=== PATIENT | male | born 1925 | race Caucasian/White ===

== ENCOUNTER 2016-08-18 08:36 | Observation (INO) | payer MEDICARE ==
[2016-08-18] MEDS ORDERED: Aspirin Low Dose CHEW TAB* 81 MG PO ONE (08:58)
[2016-08-18 09:14] LABS: Hematocrit 43 % (42-52); Hemoglobin 14.4 g/dl (14.0-18.0); Mean Corpuscular HGB Conc 34 g/dl (31-36); Mean Corpuscular Hemoglobin 32 pg (27-31); Mean Corpuscular Volume 95 fL (80-94); Mean Platelet Volume 10 um3 (7.4-10.4); Red Blood Count 4.53 10^6/ul (4.0-5.4); Red Cell Distribution Width 13 % (10.5-15); White Blood Count 6.4 10^3/ul (3.5-10.8)
[2016-08-18 09:30] LABS: Albumin 3.9 g/dL (3.2-5.2); BUN/Creatinine Ratio 19.4 (8-20); C Reactive Protein 1.42 mg/L (< 5.00); Calcium 9.4 mg/dL (8.6-10.3); EGFR African American 87.7 (>60); EGFR Non-African American 68.2 (>60); Globulin 2.8 g/dL (2-4); Potassium 4.5 mmol/L (3.5-5.0); Total Bilirubin 0.6 mg/dL (0.2-1.0); Total Protein 6.7 g/dL (6.4-8.9)
--- NOTE | 2016-08-18 09:32 | RAD ---
HISTORY: Shortness of breath COMPARISONS: July 06, 2012 VIEWS:1: Single frontal portable view of the chest at 9:02 AM FINDINGS: LINES AND TUBES: None. CARDIOMEDIASTINAL SILHOUETTE: The cardiomediastinal silhouette is normal for portable technique. PLEURA: The costophrenic angles are sharp. No pleural abnormalities are noted. LUNG PARENCHYMA: The lungs are clear. ABDOMEN: The upper abdomen is clear. There is no subphrenic gas. BONES AND SOFT TISSUES: No bone or soft tissue abnormalities are noted. IMPRESSION: NO ACTIVE CARDIOPULMONARY DISEASE.
[2016-08-18 09:37] LABS: Troponin I 0.04 ng/mL (<0.04)
[2016-08-18] MEDS ORDERED: Furosemide IV* 10 MG/ML 2 ML VIAL (20 MG) IV SLOW PU ONE (10:16)
[2016-08-18] MEDS ORDERED: Insulin REGULAR(*) 1 UNITS UNIT IV PUSH ONE (10:16)
[2016-08-18 11:12] LABS: Urine Bilirubin Negative (Negative); Urine Glucose 3+(>=500 mg/dL) (Negative); Urine Nitrite Negative (Negative)
--- NOTE | 2016-08-18 11:51 | RAD ---
Indication: Leg edema. Duplex Doppler sonography of the deep venous system of both lower extremities was performed. Bilaterally the common femoral veins, proximal greater saphenous veins, proximal deep femoral veins, femoral veins, popliteal veins, posterior tibial veins and peroneal veins appear patent and compressible. The medial aspect of the popliteal fossa is fluid collection with a 13 x 7 x 8 mm mass within it. This may represent a popliteal with a synovial osteochondroma. IMPRESSION: NO EVIDENCE OF DEEP VENOUS THROMBOSIS OF EITHER LOWER EXTREMITY IS PRESENT. IN THE MEDIAL POPLITEAL FOSSA THERE IS LIKELY A POPLITEAL FOSSA CYST IS 13 X 7 X 8 MM SOFT TISSUE MASS WHICH MAY REPRESENT AN OSTEOCHONDROMA OR LOOSE BODY.
[2016-08-18] MEDS ORDERED: Perflutren Lipid Microsphere* 3 ML VIAL ONE (13:48)
[2016-08-18] MEDS: Heparin VIAL(*) 5000 UNITS/ML VIAL (FIVE THOUSAND) SUBCUT SCH ×2 (15:15→21:00)
--- NOTE | 2016-08-18 17:53 | ED ---
Prashanth Lemus Claudia, scribed for Hector Choi MD on 08/18/16 at 0857 . Shortness of Breath - HPI Summary HPI Summary: 89 year old male presents to the ED with chief complaints of lower extremity bilateral edema. Pt states that he has been having gradual onset of intermittent Sx over the past few months but it worsened over the last day significantly. Pt denies any Rx of water pills. Pt admits to associated Sx of SOB but denies any CP, NVD. He denies any aggravating or alleviating factors at this time. - History of Current Complaint Chief Complaint: EDShortnessOfBreath Time Seen by Provider: 08/18/16 08:52 Hx Obtained From: Patient Onset/Duration: Gradual Onset, Still Present Associated Signs & Symptoms: Cough (Nonproductive), Edema - lower extremity bilaterally - Allergy/Home Medications Allergies/Adverse Reactions: Allergies Allergy/AdvReac Type Severity Reaction Status Date / Time No Known Allergies Allergy Verified 08/18/16 09:13 PMH/Surg Hx/FS Hx/Imm Hx Previously Healthy: Yes Endocrine/Hematology History: Reports: Hx Diabetes - type 2 Denies: Hx Thyroid Disease Cardiovascular History: Denies: Hx Hypertension Respiratory History: Denies: Hx Asthma, Hx Chronic Obstructive Pulmonary Disease (COPD) GI History: Denies: Hx Ulcer - Surgical History Surgery Procedure, Year, and Place: 1954 [facility] Infectious Disease History: No Infectious Disease History: Denies: Hx Hepatitis, Hx Human Immunodeficiency Virus (HIV), History Other Infectious Disease, Traveled Outside the [place] in Last 30 Days - Family History Known Family History: Positive: Cardiac Disease, Hypertension, Diabetes - Social History Occupation: Retired Lives: With Family Alcohol Use: None Substance Use Type: Reports: None Smoking Status (MU): Former Smoker Review of Systems Constitutional: Negative Eyes: Negative ENT: Negative Negative: Chest Pain Positive: Shortness Of Breath Gastrointestinal: Negative Negative: Vomiting, Diarrhea, Nausea Genitourinary: Negative Positive: Edema - to feet bilaterally Skin: Negative Neurological: Negative Psychological: Normal All Other Systems Reviewed And Are Negative: Yes Physical Exam - Summary Physical Exam Summary: VITAL SIGNS: Reviewed. GENERAL: Patient is a well-developed and nourished (MALE OR FEMALE) who is lying comfortable in the stretcher. Patient is not in any acute respiratory distress. HEAD AND FACE: No signs of trauma. No ecchymosis, hematomas or skull depressions. No sinus tenderness. EYES: PERRLA, EOMI x 2, No injected conjunctiva, no nystagmus. EARS: Hearing grossly intact. Ear canals and tympanic membranes are within normal limits. MOUTH: Oropharynx within normal limits. NECK: Supple, trachea is midline, no adenopathy, no JVD, no carotid bruit, no c- spine tenderness, neck with full ROM. CHEST: Symmetric, no tenderness at palpation LUNGS: Clear to auscultation bilaterally. No wheezing or crackles. CVS: Regular rate and rhythm, S1 and S2 present, no murmurs or gallops appreciated. ABDOMEN: Soft, non-tender. No signs of distention. No rebound no guarding, and no masses palpated. Bowel sounds are normal. EXTREMITIES: FROM in all major joints, no cyanosis or clubbing. LOWER EXTREMITY EDEMA BILATERALLY, LEFT WORST THAN THE RIGHT. NEURO: Alert and oriented x 3. No acute neurological deficits. Speech is normal and follows commands. SKIN: Dry and warm Triage Information Reviewed: Yes Vital Signs On Initial Exam: Initial Vitals Temp Pulse Resp BP Pulse Ox 97.8 F 63 20 115/66 97 08/18/16 08:38 08/18/16 08:38 08/18/16 08:38 08/18/16 08:38 08/18/16 08:38 Vital Signs Reviewed: Yes - Roxanna Coma Scale Coma Scale Total: 15 Diagnostics - Vital Signs Vital Signs Temp Pulse Resp BP Pulse Ox 08/18/16 08:51 20 08/18/16 08:50 15 08/18/16 08:38 97.8 F 63 20 115/66 97 - Laboratory Lab Results: Lab Results 08/18/16 08/18/16 08/18/16 Range/Units 09:00 09:00 09:00 WBC 6.4 (3.5-10.8) 10^3/ul RBC 4.53 (4.0-5.4) 10^6/ul Hgb 14.4 (14.0-18.0) g/dl Hct 43 (42-52) % MCV 95 H (80-94) fL MCH 32 H (27-31) pg MCHC 34 (31-36) g/dl RDW 13 (10.5-15) % Plt Count 137 L (150-450) 10^3/ul MPV 10 (7.4-10.4) um3 Neut % (Auto) 61.6 (38-83) % Lymph % (Auto) 21.9 L (25-47) % [place] % (Auto) 9.0 (1-9) % Eos % (Auto) 6.5 H (0-6) % Baso % (Auto) 1.0 (0-2) % Absolute Neuts (auto) 3.9 (1.5-7.7) 10^3/ul Absolute Lymphs (auto) 1.4 (1.0-4.8) 10^3/ul Absolute Monos (auto) 0.6 (0-0.8) 10^3/ul Absolute Eos (auto) 0.4 (0-0.6) 10^3/ul Absolute Basos (auto) 0.1 (0-0.2) 10^3/ul Absolute Nucleated RBC 0 10^3/ul Nucleated RBC % 0.1 Sodium 137 (133-145) mmol/L Potassium 4.5 (3.5-5.0) mmol/L Chloride 105 (101-111) mmol/L Carbon Dioxide 27 (22-32) mmol/L Anion Gap 5 (2-11) mmol/L BUN 20 (6-24) mg/dL Creatinine 1.03 (0.67-1.17) mg/dL Est GFR ( Amer) 87.7 (>60) Est GFR (Non-Af Amer) 68.2 (>60) BUN/Creatinine Ratio 19.4 (8-20) Glucose 295 H (70-100) mg/dL Hemoglobin A1c (Less than 6.0) % Lactic Acid 1.5 (0.5-2.0) mmol/L Calcium 9.4 (8.6-10.3) mg/dL Total Bilirubin 0.60 (0.2-1.0) mg/dL AST 17 (13-39) U/L ALT 15 (7-52) U/L Alkaline Phosphatase 71 (34-104) U/L CK-MB (CK-2) 8.9 H (0.6-6.3) ng/mL Troponin I 0.04 H* (<0.04) ng/mL C-Reactive Protein 1.42 (< 5.00) mg/L B-Natriuretic Peptide ( - 100) pg/mL Total Protein 6.7 (6.4-8.9) g/dL Albumin 3.9 (3.2-5.2) g/dL Globulin 2.8 (2-4) g/dL Albumin/Globulin Ratio 1.4 (1-3) Urine Color Urine Appearance Urine pH (5-9) Ur Specific Sylvester (1.010-1.030) Urine Protein (Negative) Urine Ketones (Negative) Urine Blood (Negative) Urine Nitrate (Negative) Urine Bilirubin (Negative) Urine Urobilinogen (Negative) Ur Leukocyte Esterase (Negative) Urine Glucose (Negative) Urine Ascorbic Acid (Negative) 08/18/16 08/18/16 08/18/16 Range/Units 09:00 09:00 10:49 WBC (3.5-10.8) 10^3/ul RBC (4.0-5.4) 10^6/ul Hgb (14.0-18.0) g/dl Hct (42-52) % MCV (80-94) fL MCH (27-31) pg MCHC (31-36) g/dl RDW (10.5-15) % Plt Count (150-450) 10^3/ul MPV (7.4-10.4) um3 Neut % (Auto) (38-83) % Lymph % (Auto) (25-47) % [place] % (Auto) (1-9) % Eos % (Auto) (0-6) % Baso % (Auto) (0-2) % Absolute Neuts (auto) (1.5-7.7) 10^3/ul Absolute Lymphs (auto) (1.0-4.8) 10^3/ul Absolute Monos (auto) (0-0.8) 10^3/ul Absolute Eos (auto) (0-0.6) 10^3/ul Absolute Basos (auto) (0-0.2) 10^3/ul Absolute Nucleated RBC 10^3/ul Nucleated RBC % Sodium (133-145) mmol/L Potassium (3.5-5.0) mmol/L Chloride (101-111) mmol/L Carbon Dioxide (22-32) mmol/L Anion Gap (2-11) mmol/L BUN (6-24) mg/dL Creatinine (0.67-1.17) mg/dL Est GFR ( Amer) (>60) Est GFR (Non-Af Amer) (>60) BUN/Creatinine Ratio (8-20) Glucose (70-100) mg/dL Hemoglobin A1c 9.4 H (Less than 6.0) % Lactic Acid (0.5-2.0) mmol/L Calcium (8.6-10.3) mg/dL Total Bilirubin (0.2-1.0) mg/dL AST (13-39) U/L ALT (7-52) U/L Alkaline Phosphatase (34-104) U/L CK-MB (CK-2) (0.6-6.3) ng/mL Troponin I (<0.04) ng/mL C-Reactive Protein (< 5.00) mg/L B-Natriuretic Peptide 97 ( - 100) pg/mL Total Protein (6.4-8.9) g/dL Albumin (3.2-5.2) g/dL Globulin (2-4) g/dL Albumin/Globulin Ratio (1-3) Urine Color Yellow Urine Appearance Clear Urine pH 6.0 (5-9) Ur Specific Sylvester 1.013 (1.010-1.030) Urine Protein Negative (Negative) Urine Ketones Negative (Negative) Urine Blood Negative (Negative) Urine Nitrate Negative (Negative) Urine Bilirubin Negative (Negative) Urine Urobilinogen Negative (Negative) Ur Leukocyte Esterase Negative (Negative) Urine Glucose 3+(>=500 mg/dl) H (Negative) Urine Ascorbic Acid * H (Negative) Result Diagrams: 08/18/16 09:00 08/18/16 09:00 Lab Statement: Any lab studies that have been ordered have been reviewed, and results considered in the medical decision making process. - Radiology CXR Xray Interpretation: No Acute Changes - NO ACTIVE CARDIOPULMONARY DISEASE Radiology Interpretation Completed By: Radiologist - EKG 8:56 Cardiac Rate: NL EKG Rhythm: Sinus Rhythm - 60 BEATS/MIN ST Segment: Normal - NO ST ELEVATION EKG Interpretation: SIMILAR TO EKG ON 07/06/12 - Additional Comments Diagnostic Additional Comments: venous doppler: NO EVIDENCE OF DEEP VENOUS THROMBOSIS OF EITHER LOWER EXTREMITY IS PRESENT. IN THE MEDIAL POPLITEAL FOSSA THERE IS LIKELY A POPLITEAL FOSSA CYST IS 13 X 7 X 8 MM SOFT TISSUE MASS WHICH MAY REPRESENT AN OSTEOCHONDROMA OR LOOSE BODY. Course/Dx - Course Assessment/Plan: 89 year old male presents to the ED with chief complaints of lower extremity bilateral edema. Pt states that he has been having gradual onset of intermittent Sx over the past few months but it worsened over the last day significantly. Pt denies any Rx of water pills. Pt admits to associated Sx of SOB but denies any CP, NVD. He denies any aggravating or alleviating factors at this time. Lab Work within nml limits except glucose of 295, troponin of 0.04. Urine analysis neg for UTI. LE shows no DVT. CXR no acute cardiopulmonary disease. In the ED course the pt was given Lasix for the LE edema and he was given aspirin for the increased troponin and insulin for the hyperglycemia. At this point I discussed the pt with Dr. Cage whom accepts for admission. The pt is Hemodynamically stable Alert and Oriented x3 - Diagnoses Differential Diagnosis/HQI/PQRI: Positive: CHF, TN, Pulmonary Edema Provider Diagnoses: Bilateral lower extremity edema, Increased troponin r/o ACS - Physician Notifications Discussed Care of Patient With: Dr. Cage has been made aware of the pt. - Dr. Cage will admit the pt for Observation. 11:33 Time Discussed With Above Provider: 11:03 Instructed by Provider To: Admit As Observation Discharge - Discharge Plan Condition: Stable Disposition: ADMITTED TO [facility] The documentation as recorded by the Prashanth coates Claudia accurately reflects the service I personally performed and the decisions made by , Hector Choi MD.
[2016-08-18] MEDS ORDERED: Insulin LISPRO* 1 UNITS UNIT SUBCUT SCH (18:00)
[2016-08-18] MEDS ORDERED: Dextrose 50% Syringe 50 ML* 25 GM/50 ML SYRINGE IV PUSH PRN (18:00)
[2016-08-18] MEDS: Insulin LISPRO* 1 UNITS UNIT SUBCUT SCH (20:58)
--- NOTE | 2016-08-18 23:33 | HP ---
CC: Bimal Wilhelm MD * HISTORY AND PHYSICAL: DATE OF ADMISSION: CHIEF COMPLAINT: Swelling in his legs. HISTORY OF PRESENT ILLNESS: The patient is an 89-year-old gentleman who presents to [facility] with a chief complaint that he feels there is increased water in his legs. He has had this problem before, but over the last couple of days, it has became more significant making it difficult for him to walk. He also notes increased shortness of breath. It is worse with exertion and sometimes worse when he lies down flat. He also admits that he does not watch the salt in his diet and eats what he wants. He denies any chest pain. He has put on a lot of weight lately. In the ED, the patient was evaluated, given some diuretics and improved significantly. His shortness of breath is better and his legs were less swollen. PAST MEDICAL HISTORY: Significant only for diabetes. PAST SURGICAL HISTORY: Significant for appendectomy. CURRENT MEDICATIONS: 1. Glucosamine 2000 mg daily. 2. Lutein 1 capsule daily. 3. Lantus insulin 34 units subcu daily. 4. Cod liver oil 2 caps daily. 5. Vitamin C 4000 mg daily. FAMILY HISTORY: Review and noncontributory. SOCIAL HISTORY: No tobacco. No alcohol. No recreational drug use. 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 He is with 4 children. His , Leana Neves, is his healthcare proxy. REVIEW OF SYSTEMS: A 14-point review of systems was completed with the patient. All pertinent positives and negatives are in the history of present illness, otherwise it is negative. PHYSICAL EXAMINATION GENERAL: A very pleasant gentleman lying in bed, in no acute distress. VITAL SIGNS: Temperature 97.5 degrees, heart rate 60 beats per minute, respiratory rate 16 breaths per minute, pulse ox 100% on room air, blood pressure 124/64. HEENT: Normocephalic and atraumatic. Pupils are equal, round, and reactive to light. Moist mucous membranes. NECK: Supple. No JVD, bruits, palpable thyroid or lymphadenopathy. CHEST: Clear to auscultation and percussion. CARDIOVASCULAR: S1, S2 appreciated. Regular rate and rhythm. ABDOMEN: Positive bowel sounds in all 4 quadrants. Soft, nontender, and nondistended. EXTREMITIES: He has got no cyanosis or clubbing. He has got +1 pitting edema bilaterally. NEUROLOGIC: Alert and oriented x3. He moves all extremities. SKIN: No rashes or abnormalities. LABORATORY DATA: WBC 6.4, hemoglobin 14.4, hematocrit 43, platelets 137. Sodium 137, potassium 4.5, chloride 105, CO2 27, BUN 20, creatinine 1.03, glucose is 295. Hemoglobin A1c is 9.4. Troponin 0.04 x3. BNP is only 97. UA just shows +3 glucose. Chest x-ray was interpreted by Radiology as no active cardiopulmonary disease. Venous Duplex showed no evidence for DVT of either lower extremity present. In the medial popliteal fossa, there is likely a popliteal fossa cyst, 13 x 7.8 x 8 mm soft tissue mass, which may represent an osteochondroma or loose body. EKG shows sinus rhythm at a rate of 60 beats per minute, left axis deviation, no acute ST-T wave changes. ASSESSMENT AND PLAN: 1. Peripheral edema with accompanying shortness of breath. His BNP is only 97. We have ordered a transthoracic echocardiogram. I will await for these results. He seems to already benefit from a diuretic, but I will certainly instruct him to watch the salt in his diet, keep his legs elevated and possibly try compressive stockings. I will hold off on diuretics and possible early discharge if echocardiogram is unremarkable. 2. Poorly controlled diabetes. Add fingersticks with sliding scale insulin. We will likely recommend the patient watch his diet more carefully which his says he does not and increase his Lantus insulin at home. 3. FEN. Consistent carb diet. 4. DVT prophylaxis. Heparin subcu. 5. The patient is a full code. TIME SPENT: Over 75 minutes were spent on this H and P, more than 40 minutes of which were spent in direct [id number] contact with the patient in evaluation, physical exam, counseling, and coordination of care. [id number]/[facility] #: [id number] LASHA
[2016-08-19] MEDS: Heparin VIAL(*) 5000 UNITS/ML VIAL (FIVE THOUSAND) SUBCUT SCH ×2 (05:55→13:17)
[2016-08-19] MEDS: Insulin LISPRO* 1 UNITS UNIT SUBCUT SCH ×2 (08:48→13:16)
[2016-08-19] MEDS ORDERED: Insulin GLARGINE(*) 1 UNITS UNIT SUBCUT SCH (09:00)
[2016-08-19] MEDS ORDERED: Ascorbic Acid TAB* 500 MG PO SCH (09:00)
[2016-08-19] MEDS ORDERED: LUTEIN PO SCH (09:00)
[2016-08-19 16:10] VITALS: BP 125/59
--- NOTE | 2016-08-19 16:35 | ECHO ---
Patient: LACEY TOVAR Rec#: [id number] : 1925 Date: 08/18/2016 Age: 89y Height: 187.96 cm / 74.0 in Weight: 90.72 kg / 199.9 lbs Sex: M BSA: 2.17 Room#: 444 Admit Date#: 08/18/2016 Type: Inpatient Referring: Alphonso Cage MD Reading: Fercho Poon MD Police Sergeant: Gisell Barlow,GUERDACS,RDMS CC: Bimal Wilhelm MD Transthoracic Echocardiogram Indication: SOB, Edema BP: 160/72 HR: 56 Rhythm: Bradycardia Findings History: DM Technical Comments: The study quality is fair. Completed 1430 Left Ventricle: The left ventricular chamber size is normal. Moderate concentric left ventricular hypertrophy is observed. There is increased basal septal hypertrophy noted without evidence of an increased gradient across the left ventricular outflow tract. The estimated ejection fraction is 55-60%. Abnormal left ventricular diastolic filling is observed, consistent with impaired relaxation. Left Atrium: The left atrium is mildly dilated. Right Ventricle: The right ventricle wall thickness is mildly increased. The right ventricular cavity size is normal. The right ventricular global systolic function is mildly reduced. Right Atrium: The right atrial cavity size is normal. Aortic Valve: The aortic valve is trileaflet. The aortic valve leaflets are mildly thickened. There is mild aortic regurgitation. There is no evidence of aortic stenosis. Mitral Valve: There is mitral annular calcification. The mitral valve leaflets are mildly thickened. There is mild mitral regurgitation. There is mild mitral stenosis. Tricuspid Valve: The tricuspid valve leaflets are normal. There is trace tricuspid regurgitation. No pulmonary hypertension is noted. Pulmonic Valve: There is no evidence of pulmonic valve thickening. There is mild pulmonic regurgitation. Pericardium: There is no significant pericardial effusion. Aorta: There is borderline dilatation of the ascending aorta. There is no dilatation of the aortic arch. There is mild dilatation of the aortic root. Pulmonary Artery: The main pulmonary artery is not well visualized. Venous: The inferior vena cava is not visualized. Contrast: Definity was used to optimize study. A total of 2 ml was used Conclusions Moderate concentric left ventricular hypertrophy is observed. There is increased basal septal hypertrophy noted without evidence of an increased gradient across the left ventricular outflow tract. The estimated ejection fraction is 55-60%. Abnormal left ventricular diastolic filling is observed, consistent with impaired relaxation. The left atrium is mildly dilated. The right ventricle wall thickness is mildly increased. There is mild aortic regurgitation. There is mild mitral regurgitation. There is mild mitral stenosis. There is mild pulmonic regurgitation. There is borderline dilatation of the ascending aorta. There is mild dilatation of the aortic root. The right ventricular global systolic function is mildly reduced. Measurements Name Value Normal Range RVIDd (AP) 2D 3 cm (0.9 - 2.6) RVDdMajor (2D) 2.5 cm (2.2 - 4.4) RAd ISD 4CH 4.3 cm (3.4 - 4.9) RA (A4C)W 4 cm (2.9 - 4.6) IVSd (2D) 1.7 cm (0.6 - 1) LVPWd (2D) 1.5 cm (0.6 - 1) LVIDd (2D) 4.1 cm (3.6 - 5.4) LVIDs (2D) 2.9 cm - LV FS (2D) 28 % (25 - 45) Aortic Annulus 2 cm (1.4 - 2.6) Ao root diameter (2D) 4 cm (2.1 - 3.5) Ascending Ao 3.5 cm (2.1 - 3.4) Aortic arch 2.3 cm (1.8 - 3.4) LA dimension (AP) 2D 4.1 cm (2.3 - 3.8) LAd ISD 4CH 5 cm (2.9 - 5.3) LA ISD 4CH W 3.9 cm (2.5 - 4.5) Name Value Normal Range LA ESV SP 4CH (A/L) 48.5 ml - LA ESV SP 2CH (A/L) 60.36 ml - LA ESV BP (A/L) 57.25 ml - LA ESV BP (A/L) index 26 ml/m2 - LA ESV SP 4CH (MOD) 43.98 ml - LA ESV SP 2CH (MOD) 56.68 ml - Name Value Normal Range MV E-wave Vmax 0.7 m/sec - MV deceleration time 334 msec - MV A-wave Vmax 1.1 m/sec - MV E:A ratio 0.6 ratio - P. vein S-wave Vmax 0.5 m/sec - P. vein D-wave Vmax 0.2 m/sec - P. vein S:D Vmax ratio 2.3 ratio - P. vein A-wave duration 157 msec - LV septal e' Vmax 0.03 m/sec - LV lateral e' Vmax 0.05 m/sec - LV E:e' septal ratio 23 ratio - LV E:e' lateral ratio 14 ratio - Name Value Normal Range AV Vmax 1.2 m/sec - AV VTI 27.3 cm - AV peak gradient 6 mmHg - AV mean gradient 3.2 mmHg - LVOT Vmax 1 m/sec - LVOT VTI 20 cm - LVOT peak gradient 4 mmHg - LVOT mean gradient 2 mmHg - BLAYNE Vmax 0.6 m/sec - Name Value Normal Range MV Vmax 1.2 m/sec - MV VTI 39 cm - MV peak gradient 6 mmHg - MV mean gradient 1.8 mmHg - MV PHT 127 msec - MVA (PHT) 1.7 cm2 - Name Value Normal Range TR Vmax 2.4 m/sec - TR peak gradient 23 mmHg - RAP 8 mmHg - RVSP 31 mmHg - Name Value Normal Range PV Vmax 0.5 m/sec - PV peak gradient 1 mmHg -
--- NOTE | 2016-08-20 12:36 | DS ---
CC: Bimal Wilhelm MD * DISCHARGE SUMMARY: DATE OF ADMISSION: 08/18/16 DATE OF DISCHARGE: 08/19/16 ADMISSION DIAGNOSES: 1. Peripheral edema. 2. Shortness of breath. 3. Diabetes, poorly controlled. DISCHARGE DIAGNOSES: 1. Peripheral edema. 2. Shortness of breath. 3. Diabetes, poorly controlled. HOSPITAL COURSE: The patient is a 89-year-old gentleman who came in with two complaints, more swelling and shortness of breath. Please see H and P for further details. The patient had a transthoracic echo, which did show some diastolic dysfunction. The patient rapidly improved with just one dose of Lasix. The patient admitted to significant amounts of uncontrolled salt in his diet. He will try to cut down that. The patient was found to have poorly controlled diabetes and hemoglobin A1c of 9.4. His Lantus was increased from 24 to 40 and he will follow up with PCP concerning the same. PHYSICAL EXAMINATION ON THE DATE OF DISCHARGE: General: Elderly gentleman lying in bed, in no acute distress. Vital Signs: Temperature 97.2 degrees, heart rate 62 beats per minute, respiratory rate 16 breaths per minute, pulse ox 100% on room air, blood pressure 120/65. HEENT: Normocephalic, atraumatic. Pupils are equal, round, and reactive to light. Moist mucous membranes. Neck : Supple. No JVD, bruits, palpable thyroid, or lymphadenopathy. Chest is clear to auscultation and percussion bilaterally. Cardiovascular Exam: S1, S2 appreciated. Abdominal Exam: Positive bowel sounds in all 4 quadrants, soft, nontender, nondistended. Extremities: No cyanosis, clubbing, minimal edema. + 2 peripheral pulses bilaterally. Neuro: Alert and oriented x3. Moves all extremities. Skin: No rash or abnormalities. STUDIES DONE WHILE IN THE HOSPITAL: Venous Duplex 08/18/16, impression: No evidence of DVT of the either lower extremity present. Chest x-ray 08/18/16, impression: No active cardiopulmonary disease. Transthoracic echocardiogram , impression: Moderate concentric left ventricular hypertrophy treatment observed. Increased basal ganglion hypertrophy noted without evidence of increased gradient across the left ventricular outflow tract, estimated ejection fraction is 55% to 60%. Abnormal left ventricular diastolic filling is observed, consistent with impaired LV relaxation. Left atrium is mildly dilated, right ventricle wall thickness mildly increased, mild aortic regurg, mild mitral regurg, mild mitral stenosis, mild pulmonary regurgitation. There is borderline dilatation of the ascending aorta, mild dilatation of the aortic root, right ventricle global systolic function mildly reduced. DISCHARGE MEDICATIONS: 1. Glucosamine 2000 mg daily. 2. Lutein 1 capsule daily. 3. Cod liver oil 3 capsules daily. 4. Vitamin C 4000 mg daily. 5. Lantus insulin 40 units subcu q. 24 hours. 6. Lasix 20 mg p.o. daily as needed. DISCHARGE PLAN: The patient will be discharged home. He will follow up with his PCP within one week. The patient was given instructions of when to take the Lasix, to wear compression stockings, to decrease the salt in his diet, and to watch his diabetic diet as well. The patient will return to ED if symptoms recur. TIME SPENT: Over 40 minutes was spent on this discharge, more than 25 minutes of which was spent in direct [id number] contact with the patient in evaluation , physical exam, and counseling and coordination of care. [id number]/[facility] #: [id number] LASHA
== END 2016-08-19 17:08 | disposition home or self-care (01) ==
LOC: ED 08:36 → MEDTELE 11:06
PROVIDERS: ADMIT Internal Medicine; ATTEND Internal Medicine
DX: R60.0 Localized edema (principal); R06.02 Shortness of breath; E11.65 Type 2 diabetes mellitus with hyperglycemia; Z79.4 Long term (current) use of insulin; I51.7 Cardiomegaly; I35.1 Nonrheumatic aortic (valve) insufficiency; I34.2 Nonrheumatic mitral (valve) stenosis; I37.1 Nonrheumatic pulmonary valve insufficiency; R74.8 Abnormal levels of other serum enzymes; Z87.891 Personal history of nicotine dependence
CPT/HCPCS: 36415; 71010; 80053; 81003; 82553; 83036; 83605; 83880; 84484; 85025; 86140; 93005; 93306; 93970; 96372; 96374; 99283; A9270-GY; C8929; G0378; J1644; J1940

== ENCOUNTER 2016-12-23 09:33 | Emergency (ER) | payer MEDICARE ==
--- NOTE | 2016-12-23 11:59 | RAD ---
INDICATION: Left rib pain one day after a fall COMPARISON: Chest x-ray dated July 06, 2012 TECHNIQUE: PA and lateral views of the chest were obtained. FINDINGS: The heart and mediastinum are normal in size and contour. There is chronic appearing calcification overlying the arch of the aorta. The lungs are grossly clear. There is no evidence of large pleural effusion. Visualized bones are normal for the patient's age. There is no radiographic evidence of free air beneath the diaphragm IMPRESSION: NO RADIOGRAPHIC EVIDENCE OF ACUTE CARDIOPULMONARY DISEASE OR DISPLACED RIB FRACTURE.
--- NOTE | 2016-12-23 12:00 | RAD ---
INDICATION: Left knee pain after a fall COMPARISON: None TECHNIQUE: 4 view radiograph of the left knee. FINDINGS: The visualized bones are well-corticated and properly aligned. Degenerative changes of the left knee include narrowing of the medial compartment and narrowing of the patellofemoral joint on the lateral view. There is no radiographic evidence of joint effusion. There is no acute fracture, dislocation or other focal bony abnormality. There is coarse atherosclerotic calcification of the distal left SFA, popliteal artery and proximal tibial arteries. IMPRESSION: Degenerative changes as described above without radiographically apparent fracture or dislocation. If the patient's symptoms persist, follow-up imaging is recommended.
--- NOTE | 2016-12-23 12:00 | RAD ---
HISTORY: Fall, left-sided rib pain COMPARISONS: None VIEWS: 4, Frontal and oblique views of the left hemithorax. FINDINGS: There is no displaced rib fracture or pneumothorax. The visualized lungs are clear. IMPRESSION: NO DISPLACED RIB FRACTURE OR PNEUMOTHORAX
[2016-12-23 12:02] VITALS: BP 139/74
--- NOTE | 2016-12-23 12:02 | RAD ---
HISTORY: Fall, left hand pain and swelling COMPARISONS: None VIEWS: 4, Frontal, lateral, and oblique views of the left hand FINDINGS: BONE DENSITY: There is diffuse osteopenia BONES: There is no displaced fracture. 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 ALIGNMENT: There is no dislocation. SOFT TISSUES: Unremarkable. OTHER FINDINGS: None. IMPRESSION: 1. OSTEOPENIA. 2. ADVANCED OSTEOARTHRITIS. 3. NO ACUTE OSSEOUS INJURY. THE DEGREE OF OSTEOPENIA MAY MAKE A NONDISPLACED FRACTURE RADIOGRAPHICALLY OCCULT. IF SYMPTOMS PERSIST, RECOMMEND REPEAT IMAGING.
--- NOTE | 2016-12-23 13:14 | UC ---
General HPI - HPI Summary HPI Summary: Patient presents s/p what was reported to be a mechanical fall. He states he was walking back up from the pool on his morning walk, and the ground keeper went past him, he remembered that he needed them to come to his place and do some work, so he turned around "too quickly" and reports he fell. He states he landed on his left knee, and then fell foreward landing on his left hand, wrist and then his left side chest. He complains of left hand finger and wrist pain, but is able to move his fingers and bend his wrist, he notes swelling and bruising. He also complains of left knee pain and he shows me and points to the outside of the knee. He then complains of left sided rib pain, and states that is hurts to take a deep breath. He denies any head or neck pain, no LOC. He states he does not take any anticoagulants. He denies any back, truck or abdomen pain. Denies headache, dizziness, lightheadedness, nausea, vomiting, chest pain, dyspnea, nausea or vomiting. He states he was able to get himself up, and has been walking without any additional pain or concerns. - History of Current Complaint Chief Complaint: UCTrauma Stated Complaint: FALL/ HURT LEFT SIDE OF BODY Time Seen by Provider: 12/23/16 10:55 Hx Obtained From: Patient Onset/Duration: Sudden Onset, Still Present Timing: Constant Onset Severity: Mild Current Severity: Mild Pain Intensity: 2 - Allergy/Home Medications Allergies/Adverse Reactions: Allergies Allergy/AdvReac Type Severity Reaction Status Date / Time No Known Allergies Allergy Verified 12/23/16 09:44 PMH/Surg Hx/FS Hx/Imm Hx Previously Healthy: Yes Endocrine History: Diabetes - Surgical History Surgical History: Yes Surgery Procedure, Year, and Place: 1954 appy - Family History Known Family History: Positive: Cardiac Disease, Hypertension, Diabetes - Social History Occupation: Retired Lives: With Family Alcohol Use: None Substance Use Type: None Smoking Status (MU): Former Smoker Type: Cigarettes Have You Smoked in the Last Year: No When Did the Patient Quit Smoking/Using Tobacco: Age 42 - Immunization History Most Recent Influenza Vaccination: never Most Recent Pneumonia Vaccination: unknown Review of Systems Constitutional: Negative Skin: Negative Eyes: Negative ENT: Negative Respiratory: Negative Cardiovascular: Negative Gastrointestinal: Negative Genitourinary: Negative Motor: Negative Neurovascular: Negative Musculoskeletal: Other: - left knee, hand, wrist, fingers, and rib pain. Neurological: Negative Psychological: Negative All Other Systems Reviewed And Are Negative: Yes Physical Exam Triage Information Reviewed: Yes Appearance: Well-Appearing Vital Signs: Initial Vital Signs Temp 97 F 12/23/16 09:46 Pulse 69 12/23/16 09:46 Resp 18 12/23/16 09:46 BP 114/53 12/23/16 09:46 Pulse Ox 100 12/23/16 09:46 Vital Signs Reviewed: Yes Eye Exam: Normal ENT Exam: Normal Neck exam: Normal Respiratory Exam: Normal Respiratory: Positive: Lungs clear, Normal breath sounds, No respiratory distress, No accessory muscle use Cardiovascular Exam: Normal Cardiovascular: Positive: RRR, No Murmur, Pulses Normal, Brisk Capillary Refill Abdominal Exam: Normal Abdomen Description: Positive: Nontender Bowel Sounds: Positive: Present Musculoskeletal Exam: Other - left hand, inspection: soft tissue swelling and bruising noted at base of first and middle finger. Palpation, tenderness to palpation of first and middle finger at PIP and Metacarpel head. ROM; flextion to approximatley 50%, extension to 0, can abduct, and adduct all fingers. Vasc, radial and ulnar pulses palpable. Neuro, no decreased sensation touch distally.left knee, inspection small superficial abrasion noted. Palpation, tenderness to palpation of the lateral collaral tendon. ROM intact with full flexion, extension. Negative anterior and posterior draw signs. Negative valus, and varus stress test. vasc, no edema, post tib pulses intact. Neuro, no defiicts to touch distally. Left ribs, no bruising noted. tenderness on palpation of the lateraly ribs over # 7,8,9 laterally. Musculoskeletal: Positive: Other: Neurological Exam: Normal Skin Exam: Normal, Other Course/Dx - Course Course Of Treatment: Patient presents s/p reported mechanical fall. Denies any prior lightheadedness, dizziness, SOB, chest pain. He states he turned around too fast and fell. He states he fell on his left knee, and cought himself with his left hand, and then fell foreward and landed on his chest. He complained of left rib pain that was totally reproducible with inspiration, otherwise denied any symptoms. Xrays of the left hand, wrist, knee chest and ribs were obtained and read by the radiologist and reviewed with the patient as negative. I did tell the patient that is he has any prolonged pain in any of the areas that he injuried to follow up for CT. He verbalized understanding of and was in agreement of the discharge plan. - Differential Dx - Multi-Symptom Differential Diagnoses: Other - sprain wrist contusion knee pain rib contusion fall Provider Diagnoses: wrist sprain. contusions. rib contusion. knee pain. fall Discharge - Discharge Plan Condition: Stable Disposition: HOME Patient Education Materials: Sprain (ED), Contusion in Adults (ED), Knee Pain ( ED), Fall Prevention (ED), Rib Contusion (ED) Referrals: Bimal Wilhelm MD [Primary Care Provider] - Additional Instructions: I recommend that you be re-evaluated in two days.
== END 2016-12-23 12:21 | disposition home or self-care (01) ==
LOC: UCEAST 09:33
DX: S63.502A Unspecified sprain of left wrist, initial encounter (principal); T14.8XXA Other injury of unspecified body region, initial encounter; S20.212A Contusion of left front wall of thorax, initial encounter; M25.562 Pain in left knee; W18.30XA Fall on same level, unspecified, initial encounter; Y93.89 Activity, other specified; Y92.9 Unspecified place or not applicable; Y99.9 Unspecified external cause status; M85.842 Other specified disorders of bone density and structure, left hand; M19.042 Primary osteoarthritis, left hand; Z87.891 Personal history of nicotine dependence
CPT/HCPCS: 71020; 99211; G0463

== ENCOUNTER 2017-01-27 04:39 | Emergency (ER) | payer MEDICARE ==
[2017-01-27] MEDS ORDERED: Ondansetron INJ* 2 MG/ML VIAL IV ONE (05:25)
[2017-01-27] MEDS ORDERED: NS 0.9% 1000 ML* 1,000 ML IV ONE (05:25)
[2017-01-27 06:37] LABS: Hematocrit 41 % (42-52); Hemoglobin 14.3 g/dl (14.0-18.0); Mean Corpuscular HGB Conc 35 g/dl (31-36); Mean Corpuscular Hemoglobin 32 pg (27-31); Mean Corpuscular Volume 92 fL (80-94); Mean Platelet Volume 9 um3 (7.4-10.4); Red Blood Count 4.48 10^6/ul (4.0-5.4); Red Cell Distribution Width 14 % (10.5-15); White Blood Count 6.1 10^3/ul (3.5-10.8)
--- NOTE | 2017-01-27 06:52 | ED ---
Nona Lemus Emily, scribed for Brent Phoenix on 01/27/17 at 0516 . Abdominal Pain/Male - HPI Summary HPI Summary: This patient is an 89 year old M BIBA to [facility] with a chief complaint of abd pain that began at 1800 yesterday. The patient rates the pain 5/10 in severity. Symptoms aggravated by nothing. Symptoms alleviated by nothing. Patient reports nausea and vomiting. Patient denies diarrhea. - History of Current Complaint Chief Complaint: EDAbdPain Stated Complaint: ABD PAIN Time Seen by Provider: 01/27/17 05:07 Hx Obtained From: Patient Onset/Duration: Sudden Onset, Lasting Hours, Still Present Timing: Constant Severity Initially: Moderate Severity Currently: Moderate Pain Intensity: 5 Pain Scale Used: 0-10 Numeric Location: Diffuse Aggravating Factor(s): Nothing Alleviating Factor(s): Nothing Associated Signs And Symptoms: Positive: Nausea, Vomiting. Negative: Diarrhea - Allergies/Home Medications Allergies/Adverse Reactions: Allergies Allergy/AdvReac Type Severity Reaction Status Date / Time No Known Allergies Allergy Verified 12/23/16 09:44 PMH/Surg Hx/FS Hx/Imm Hx Previously Healthy: No Endocrine/Hematology History: Reports: Hx Diabetes - type 2 Denies: Hx Thyroid Disease Cardiovascular History: Reports: Other Cardiovascular Problems/Disorders - DIABETES Denies: Hx Hypertension Respiratory History: Denies: Hx Asthma, Hx Chronic Obstructive Pulmonary Disease (COPD) GI History: Denies: Hx Ulcer Sensory History: Reports: Hx Contacts or Glasses, Hx Hearing Aid - left ear only Opthamlomology History: Reports: Hx Contacts or Glasses - Surgical History Surgery Procedure, Year, and Place: 1954 app Infectious Disease History: No Infectious Disease History: Denies: Hx Clostridium Difficile, Hx Hepatitis, Hx Human Immunodeficiency Virus (HIV), Hx of Known/Suspected MRSA, Hx Shingles, Hx Tuberculosis, Hx Known/ Suspected VRE, Hx Known/Suspected VRSA, History Other Infectious Disease, Traveled Outside the [place] in Last 30 Days - Family History Known Family History: Positive: Cardiac Disease, Hypertension, Diabetes - Social History Occupation: Retired Lives: With Family Alcohol Use: None Substance Use Type: Reports: None Smoking Status (MU): Former Smoker Type: Cigarettes Have You Smoked in the Last Year: No Review of Systems Negative: Fever Positive: Abdominal Pain, Vomiting, Nausea. Negative: Diarrhea All Other Systems Reviewed And Are Negative: Yes Physical Exam Triage Information Reviewed: Yes Vital Signs On Initial Exam: Initial Vitals Temp Pulse Resp BP Pulse Ox 97.8 F 64 18 151/72 98 01/27/17 04:48 01/27/17 04:48 01/27/17 04:48 01/27/17 04:48 01/27/17 04:48 Vital Signs Reviewed: Yes Appearance: Positive: Well-Appearing, No Pain Distress Skin: Positive: Warm, Skin Color Reflects Adequate Perfusion, Dry Head/Face: Positive: Normal Head/Face Inspection Eyes: Positive: EOMI, ANANYA ENT: Positive: Normal ENT inspection Neck: Positive: Supple, Nontender Respiratory/Lung Sounds: Positive: Clear to Auscultation, Breath Sounds Present Cardiovascular: Positive: RRR, Pulses are Symmetrical in both Upper and Lower Extremities Abdomen Description: Positive: Other: - Distended abdomen. Diffuse tenderness. Bowel Sounds: Positive: Present Musculoskeletal: Positive: Normal, Strength/ROM Intact Neurological: Positive: Normal, Sensory/Motor Intact, Alert, Oriented to Person Place, Time Psychiatric: Positive: Affect/Mood Appropriate Diagnostics - Vital Signs Vital Signs Temp Pulse Resp BP Pulse Ox 01/27/17 04:48 97.8 F 64 18 151/72 98 - Laboratory Result Diagrams: 01/27/17 06:12 Lab Statement: Any lab studies that have been ordered have been reviewed, and results considered in the medical decision making process. - EKG 0638 Cardiac Rate: NL EKG Rhythm: Sinus Rhythm - 70 BPM EKG Comparison: No Significant Change Abdominal Pain Fem Course/Dx - Course Assessment/Plan: This patient is an 89 year old M BIBA to [facility] with a chief complaint of abd pain that began at 1800 yesterday. Symptoms alleviated by nothing. Patient reports nausea and vomiting. Patient denies diarrhea. Diffuse tenderness. Distended abdomen. In the ED course the patient was given fluids and Zofran. EKG taken at 0638 reveals normal sinus rhythm at 70 BPM with no acute changes. Pt is signed-off to Dr. Kat upon shift change, pending dispo , awaiting lab results and CT scan. - Diagnoses Provider Diagnoses: Abdominal pain Discharge - Discharge Plan Condition: Stable Disposition: OTHER Discharge Disposition Comment: Sign-off to Dr. Kat Referrals: Bimal Wilhelm MD [Primary Care Provider] - The documentation as recorded by the scribeNona Emily accurately reflects the service I personally performed and the decisions made by me, Brent Phoenix.
[2017-01-27 06:56] LABS: BUN/Creatinine Ratio 19.4 (8-20); Calcium 9.5 mg/dL (8.6-10.3); EGFR African American 92.6 (>60); Globulin 2.9 g/dL (2-4); Potassium 4.4 mmol/L (3.5-5.0); Total Bilirubin 0.7 mg/dL (0.2-1.0); Total Protein 6.9 g/dL (6.4-8.9)
[2017-01-27 07:04] LABS: Troponin I 0.03 ng/mL (<0.04)
[2017-01-27] MEDS ORDERED: Iodixanol* (CONTRAST) 320 MG/ML 100 ML SDV IV ONE (07:10)
--- NOTE | 2017-01-27 08:36 | RAD ---
CLINICAL HISTORY: Abdominal pain, nausea and vomiting. Relevant surgical history includes appendectomy. COMPARISON: None TECHNIQUE: Contrast enhanced CT examination of the abdomen and pelvis from the lung bases through the initial tuberosities. The patient received 101 mL Visipaque 320 intravenously prior to imaging.The patient received oral contrast as well prior to imaging. FINDINGS: VISUALIZED LUNG BASES: The visualized lung bases are grossly clear. There is no pleural effusion. ABDOMEN AND PELVIS: The liver, spleen, pancreas and adrenal glands are grossly normal in appearance. The gallbladder is normal. The right kidney is in appearance without focal mass, calcification or signs of hydronephrosis. At the anterior upper pole of the left kidney there is a heterogeneous mass measuring 4.9 x 4.9 cm in the axial plane and 4.3 cm in the cephalocaudal projection. The oral contrast as progressed as far as the base of the cecum. There are air-fluid levels throughout much of the distal small bowel. The small and large bowel are not distended. The appendix is not visualized consistent with the patient's medical history. The gas and stool-filled colon does not exhibit any focal abnormalities including wall thickening or focal pericolonic inflammation. There is no gross retroperitoneal or mesenteric lymphadenopathy. The pelvic viscera is normal in appearance. There are bilateral fat-containing inguinal hernias. The moderately calcified abdominal aorta and iliac arteries are normal in course and diameter. Degenerative changes include multilevel loss of intervertebral disc height involving the lower thoracic and lumbar spine, multilevel vacuum disc phenomenon and endplate sclerosis most severe at L3/L4. There are are no suspicious focal bone lesions. IMPRESSION: 1. At the left kidney there is an enhancing mass measuring 4.9 x 4.9 x 4.3 cm. Renal cell carcinoma or other malignancy is the primary concern. There is no local lymphadenopathy or signs of metastasis on this CT of the abdomen and pelvis. 2. Air-fluid levels seen throughout the otherwise normal-appearing small bowel could be seen in the setting of diarrhea long illness. 3. Additional chronic, degenerative and iatrogenic findings described in the body of the report.
--- NOTE | 2017-01-27 09:15 | ED ---
Romario Lemus Gabriel, scribed for Issac Kat MD on 01/27/17 at 0711 . Progress - Progress Note Progress Note: This patient was signed out from Dr. Phoenix, pending disposition, awaiting CT ABD/Pelvis. CT ABD/Pelvis reveals 1. At the left kidney there is an enhancing mass measuring 4.9 x 4.9 x 4.3 cm. Renal cell carcinoma or other malignancy is the primary concern. There is no local lymphadenopathy or signs of metastasis on this CT of the abdomen and pelvis. 2. Air-fluid levels seen throughout the otherwise normal-appearing small bowel could be seen in the setting of diarrhea long illness. 3. Additional chronic, degenerative and iatrogenic findings described in the body of the report. ED physician has reviewed this report.. The patients condition is stable and will be discharged to home with Dx of general abdominal pain, chronic constipation and a left renal mass. Patient was reevaluated by the doctor at 07:12 The patient states that his pain had decreased from earlier down to around 2/ 10. He reports vomiting but denies CP and diarrhea. His last BM was 3 days ago and reports he has had GI issues in the past. Appearance: Well appearing, no pain distress Skin: warm, dry, reflects adequate perfusion Head/face: normal Eyes: EOMI, ANANYA ENT: normal Neck: supple, non-tender Respiratory: CTA, breath sounds present Cardiovascular: RRR, pulses symmetrical Abdomen: non-tender, soft, distended, tympanitic, There is a periumbilical hernia present. Bowel: present Musculoskeletal: normal, strength/ROM intact Neuro: normal, sensory motor intact, A&Ox Pt explained likely cancer. His pain is gone. d/w his PMD -- will follow closely and determine plan for further dx/tx of likely renal cell ca. Re-Evaluation - Re-Evaluation First Eval Re-Evaluation Time: 08:46 Change: Unchanged - The patients pain has resolved and discussed CT results. Course/Dx - Diagnoses Provider Diagnoses: Abdominal pain, Left renal mass, Chronic constipation - Provider Notifications Discussed Care Of Patient With: Bimal Wilhelm Time Discussed With Above Provider: 08:56 Instructed by Provider To: Other - Discussed patient care with Dr. Wilhelm, patients primary care provider. He was made aware of the patients CT results, he will follow up with patient and discuss care of the possible cancer. The documentation as recorded by the Romario coates Gabriel accurately reflects the service I personally performed and the decisions made by me, Issac Kat MD.
[2017-01-27 10:02] LABS: Urine Bilirubin Negative (Negative); Urine Glucose 3+(>=500 mg/dL) (Negative); Urine Nitrite Negative (Negative)
[2017-01-27 10:04] VITALS: BP 123/76
== END 2017-01-27 10:04 | disposition home or self-care (01) ==
LOC: ED 04:39
DX: N28.89 Other specified disorders of kidney and ureter (principal); R10.84 Generalized abdominal pain; K59.00 Constipation, unspecified; E11.9 Type 2 diabetes mellitus without complications; Z87.891 Personal history of nicotine dependence
CPT/HCPCS: 36415; 74177; 80053; 81003; 83605; 83690; 84484; 85025; 85610; 85730; 93005; J2405; Q9967

== ENCOUNTER 2017-02-03 11:00 | Observation (INO) | payer MEDICARE ==
[2017-02-03] MEDS ORDERED: NS 0.9% 1000 ML*IV.FLUID IV ONE (11:41)
[2017-02-03] MEDS ORDERED: Albuterol/Ipratropium NEB.SOL* Albuterol 2.5 MG/Ipratropium 0.5 MG 3 ML INH ONE (11:42)
[2017-02-03 12:29] LABS: ABS Basophils 0 10^3/ul (0-0.2); ABS Eosinophils 0.2 10^3/ul (0-0.6); ABS Lymphocytes 1.5 10^3/ul (1.0-4.8); ABS Monocytes 0.8 10^3/ul (0-0.8); ABS Neutrophils 6.3 10^3/ul (1.5-7.7); ABS Nucleated RBC 0 10^3/ul; Eosinophil % 2.5 % (0-6); Hematocrit 43 % (42-52); Hemoglobin 14.7 g/dl (14.0-18.0); Lymphocyte % 17.2 % (25-47); Mean Corpuscular HGB Conc 34 g/dl (31-36); Mean Corpuscular Hemoglobin 32 pg (27-31); Mean Corpuscular Volume 92 fL (80-94); Mean Platelet Volume 9 um3 (7.4-10.4); Nucleated Red Blood Cells % 0; Platelet Count 175 10^3/ul (150-450); Red Blood Count 4.66 10^6/ul (4.0-5.4); Red Cell Distribution Width 14 % (10.5-15); White Blood Count 8.8 10^3/ul (3.5-10.8)
[2017-02-03 12:41] LABS: INR 1.02 (0.77-1.02)
[2017-02-03 13:01] LABS: EGFR Non-African American 69.6 (>60)
--- NOTE | 2017-02-03 13:07 | RAD ---
INDICATION: Cough and shortness of breath. COMPARISON: Comparison is made with a prior chest x-ray study from December 23, 2016. TECHNIQUE: Dual-energy PA and lateral views of the chest were obtained. FINDINGS: The heart is within normal limits in size. Mediastinal and hilar contours appear within normal limits. The lungs are clear. No pleural effusion is present. IMPRESSION: NO EVIDENCE FOR ACTIVE CARDIOPULMONARY DISEASE.
[2017-02-03] MEDS: Oseltamivir CAP* 75 MG PO SCH ×2 (13:37→21:55)
[2017-02-03] MEDS ORDERED: Dextrose 50% Syringe 50 ML* 25 GM/50 ML SYRINGE IV PUSH PRN (14:55)
[2017-02-03] MEDS ORDERED: Acetaminophen TAB* 325 MG PO PRN (14:56)
[2017-02-03] MEDS ORDERED: Benzonatate CAP* 100 MG PO PRN (14:57)
[2017-02-03] MEDS ORDERED: guaiFENesin LIQ* 100 MG/5 ML UDC PO PRN (14:57)
[2017-02-03] MEDS: NS 0.9% 1000 ML* 1,000 ML IV SCH (15:20)
[2017-02-03] MEDS: Insulin LISPRO* 1 UNITS UNIT SUBCUT SCH (17:30)
--- NOTE | 2017-02-03 17:50 | ED ---
Romario Lemus Gabriel, scribed for Issac Kat MD on 02/03/17 at 1141 . Respiratory - HPI Summary HPI Summary: This patient is a 89 year old M presenting to [facility] accompanied by his daughter with a chief complaint of PNA since early today. He was seen at [facility] this morning but was sent here for faster imagining results. Patient reports productive cough, fever, SOB, delirium, and weakness. Patient denies tremors ( increased from baseline), edema, MOTNERO, trauma, and extremity pain. His has PNA. - History of Current Complaint Chief Complaint: EDShortnessOfBreath Stated Complaint: SHORT OF BREATH Time Seen by Provider: 02/03/17 11:33 Hx Obtained From: Patient, Family/Line Service Supervisor - daughter Onset/Duration: Lasting Hours - this morning, Still Present Timing: Constant Initial Severity: Moderate Current Severity: Moderate Pain Intensity: 0 Character: Cough (Productive) Sputum Amount: Moderate Associated Signs and Symptoms: Fever, SOB - Allergy/Home Medications Allergies/Adverse Reactions: Allergies Allergy/AdvReac Type Severity Reaction Status Date / Time No Known Allergies Allergy Verified 12/23/16 09:44 PMH/Surg Hx/FS Hx/Imm Hx Endocrine/Hematology History: Reports: Hx Diabetes - type 2 Denies: Hx Thyroid Disease Cardiovascular History: Reports: Other Cardiovascular Problems/Disorders - DIABETES Denies: Hx Hypertension Respiratory History: Denies: Hx Asthma, Hx Chronic Obstructive Pulmonary Disease (COPD) GI History: Denies: Hx Ulcer History: Denies: Hx Dialysis, Hx Renal Disease Sensory History: Reports: Hx Contacts or Glasses, Hx Hearing Aid - left ear only Opthamlomology History: Reports: Hx Contacts or Glasses - Surgical History Surgery Procedure, Year, and Place: 1954 [address] Infectious Disease History: No Infectious Disease History: Denies: Hx Clostridium Difficile, Hx Hepatitis, Hx Human Immunodeficiency Virus (HIV), Hx of Known/Suspected MRSA, Hx Shingles, Hx Tuberculosis, Hx Known/ Suspected VRE, Hx Known/Suspected VRSA, History Other Infectious Disease, Traveled Outside the [place] in Last 30 Days - Family History Known Family History: Positive: Cardiac Disease, Hypertension, Diabetes - Social History Alcohol Use: None Substance Use Type: Reports: None Smoking Status (MU): Former Smoker Type: Cigarettes Have You Smoked in the Last Year: No Review of Systems Constitutional: Negative - Trauma, extremity pain Positive: Fever Positive: Shortness Of Breath, Cough - productive Musculoskeletal: Negative - increased tremors Negative: Edema Neurological: Other - delirium Positive: Weakness. Negative: Headache All Other Systems Reviewed And Are Negative: Yes Physical Exam - Summary Physical Exam Summary: Appearance: Well appearing, no pain distress Skin: warm, dry, reflects adequate perfusion Head/face: normal Eyes: EOMI, ANANYA ENT: Hearing aide in the right ear Mucus membranes are tacky no nasal discharge Neck: supple, non-tender, no lymphadenopathy Respiratory: Fine crackles in right base with occasional wheeze Cardiovascular: RRR, pulses symmetrical Abdomen: non-tender, soft Bowel: present Musculoskeletal: normal, strength/ROM intact Neuro: normal, sensory motor intact, A&Ox3 Triage Information Reviewed: Yes Vital Signs On Initial Exam: Initial Vitals Temp Pulse Resp BP Pulse Ox 97.8 F 65 22 145/63 97 02/03/17 11:03 02/03/17 11:03 02/03/17 11:03 02/03/17 11:03 02/03/17 11:03 Vital Signs Reviewed: Yes Diagnostics - Vital Signs Vital Signs Temp Pulse Resp BP Pulse Ox 02/03/17 11:03 97.8 F 65 22 145/63 97 - Laboratory Lab Results: Lab Results 02/03/17 02/03/17 02/03/17 Range/Units 12:06 12:06 12:06 WBC (3.5-10.8) 10^3/ul RBC (4.0-5.4) 10^6/ul Hgb (14.0-18.0) g/dl Hct (42-52) % MCV (80-94) fL MCH (27-31) pg MCHC (31-36) g/dl RDW (10.5-15) % Plt Count (150-450) 10^3/ul MPV (7.4-10.4) um3 Neut % (Auto) (38-83) % Lymph % (Auto) (25-47) % [place] % (Auto) (1-9) % Eos % (Auto) (0-6) % Baso % (Auto) (0-2) % Absolute Neuts (auto) (1.5-7.7) 10^3/ul Absolute Lymphs (auto) (1.0-4.8) 10^3/ul Absolute Monos (auto) (0-0.8) 10^3/ul Absolute Eos (auto) (0-0.6) 10^3/ul Absolute Basos (auto) (0-0.2) 10^3/ul Absolute Nucleated RBC 10^3/ul Nucleated RBC % INR (Anticoag Therapy) 1.02 (0.77-1.02) APTT 29.1 (26.0-36.3) seconds Sodium 134 (133-145) mmol/L Potassium 4.7 (3.5-5.0) mmol/L Chloride 100 L (101-111) mmol/L Carbon Dioxide 26 (22-32) mmol/L Anion Gap 8 (2-11) mmol/L BUN 21 (6-24) mg/dL Creatinine 1.01 (0.67-1.17) mg/dL Est GFR ( Amer) 89.4 (>60) Est GFR (Non-Af Amer) 69.6 (>60) BUN/Creatinine Ratio 20.8 H (8-20) Glucose 231 H (70-100) mg/dL Lactic Acid (0.5-2.0) mmol/L Calcium 9.3 (8.6-10.3) mg/dL Total Bilirubin 0.80 (0.2-1.0) mg/dL AST 21 (13-39) U/L ALT 17 (7-52) U/L Alkaline Phosphatase 85 (34-104) U/L Troponin I 0.04 H* (<0.04) ng/mL C-Reactive Protein 68.89 H (< 5.00) mg/L B-Natriuretic Peptide 69 ( - 100) pg/mL Total Protein 7.2 (6.4-8.9) g/dL Albumin 3.9 (3.2-5.2) g/dL Globulin 3.3 (2-4) g/dL Albumin/Globulin Ratio 1.2 (1-3) Influenza A (Rapid) (Negative) Influenza B (Rapid) (Negative) 02/03/17 02/03/17 02/03/17 Range/Units 12:06 12:06 12:22 WBC 8.8 (3.5-10.8) 10^3/ul RBC 4.66 (4.0-5.4) 10^6/ul Hgb 14.7 (14.0-18.0) g/dl Hct 43 (42-52) % MCV 92 (80-94) fL MCH 32 H (27-31) pg MCHC 34 (31-36) g/dl RDW 14 (10.5-15) % Plt Count 175 (150-450) 10^3/ul MPV 9 (7.4-10.4) um3 Neut % (Auto) 71.0 (38-83) % Lymph % (Auto) 17.2 L (25-47) % [place] % (Auto) 8.9 (1-9) % Eos % (Auto) 2.5 (0-6) % Baso % (Auto) 0.4 (0-2) % Absolute Neuts (auto) 6.3 (1.5-7.7) 10^3/ul Absolute Lymphs (auto) 1.5 (1.0-4.8) 10^3/ul Absolute Monos (auto) 0.8 (0-0.8) 10^3/ul Absolute Eos (auto) 0.2 (0-0.6) 10^3/ul Absolute Basos (auto) 0 (0-0.2) 10^3/ul Absolute Nucleated RBC 0 10^3/ul Nucleated RBC % 0 INR (Anticoag Therapy) (0.77-1.02) APTT (26.0-36.3) seconds Sodium (133-145) mmol/L Potassium (3.5-5.0) mmol/L Chloride (101-111) mmol/L Carbon Dioxide (22-32) mmol/L Anion Gap (2-11) mmol/L BUN (6-24) mg/dL Creatinine (0.67-1.17) mg/dL Est GFR ( Amer) (>60) Est GFR (Non-Af Amer) (>60) BUN/Creatinine Ratio (8-20) Glucose (70-100) mg/dL Lactic Acid 1.9 (0.5-2.0) mmol/L Calcium (8.6-10.3) mg/dL Total Bilirubin (0.2-1.0) mg/dL AST (13-39) U/L ALT (7-52) U/L Alkaline Phosphatase (34-104) U/L Troponin I (<0.04) ng/mL C-Reactive Protein (< 5.00) mg/L B-Natriuretic Peptide ( - 100) pg/mL Total Protein (6.4-8.9) g/dL Albumin (3.2-5.2) g/dL Globulin (2-4) g/dL Albumin/Globulin Ratio (1-3) Influenza A (Rapid) Positive H (Negative) Influenza B (Rapid) Negative (Negative) Result Diagrams: 02/03/17 12:06 02/03/17 12:06 Lab Statement: Any lab studies that have been ordered have been reviewed, and results considered in the medical decision making process. - Radiology CXR Radiology Interpretation Completed By: Radiologist - NO EVIDENCE FOR ACTIVE CARDIOPULMONARY DISEASE. ED physician has reviewed this radiology report. - EKG 1150 Cardiac Rate: NL EKG Rhythm: Sinus Rhythm - at 66 BPM EKG Interpretation: normal axis, poor R wave progression, Q wave in lead 3 Disposition - Course Course Of Treatment: pt with hallucinations, cold sx and dehydration. +Flu a. Outside of tx window. Will require admit for supportive care and resolution of delirium. - Diagnoses Provider Diagnoses: Influenza A, Dehydration, Delirium - Physician Notifications Discussed Care Of Patient With: Melissa An Time Discussed With Above Provider: 13:23 Instructed by Provider To: Admit As Inpatient Discharge - Discharge Plan Condition: Fair Disposition: ADMITTED TO [facility] The documentation as recorded by the Romario coates Gabriel accurately reflects the service I personally performed and the decisions made by , Issac Kat MD.
[2017-02-03] MEDS ORDERED: Castor Oil (Pharmaceutic Aid)* 118 ML BTL PO ONE (18:30)
[2017-02-03 20:32] LABS: Urine Appearance Clear; Urine Blood Negative (Negative); Urine Color Yellow; Urine Ketones Negative (Negative); Urine Protein Negative (Negative); Urine Specific Gravity 1.018 (1.010-1.030); Urine Urobilinogen Negative (Negative)
--- NOTE | 2017-02-03 21:11 | HP ---
CC: Dr. Wilhelm * [facility] MEDICINE HISTORY AND PHYSICAL: DATE OF ADMISSION: 02/03/17 PRIMARY CARE PROVIDER: Dr. Wilhelm. ATTENDING PHYSICIAN: Dr. Melissa An * (dictation provided by Domonique Augustin NP ). CHIEF COMPLAINT: Cough and weakness. HISTORY OF PRESENT ILLNESS: Mr. Neves is an 89-year-old male with some confusion and underlying dementia, who presents today to the hospital with concern for cough and weakness. He provides a history today, but this is supported by his daughter who is at the bedside. Per the report, Mr. Neves had been having some constipation and came to the emergency room on 01/27/17 at which time he had a CT abdomen and pelvis, which showed that the patient had a newly found left kidney mass measuring 4.9 x 4.9 x 4.3 cm with likely diagnosis of renal cell carcinoma. This was directly discussed with Dr. Wilhelm and then this information was passed on to the patient and family. At this point, they are not planning any further workup per the patient's report. Since , the patient has been feeling weak. His had been feeling ill with cough and fever. The family's daughter had been coming in frequently to check on them and had been growing more concern. She finally demanded that they go in for evaluation today at Dr. Wilhelm's office where they were seen by the patient's 's primary care provider, Dr. Zavaleta. On examination, Dr. Zavaleta apparently diagnosed the patient's with pneumonia, but was more concerned about the patient himself and I have requested that he come to the emergency room for evaluation. Mr. Neves states that he has been having "psychosis" for the past 4 days. He describes "soul traveling." His daughter states that he has had ongoing issues with hallucinations but is "a very spiritual person" and these hallucinations seemed to revolve around spiritual matters. Over the past few days, he has become more confused and also evidencing weakness with cough. In the emergency room, Mr. Neves was found to have a positive flu swab. His other labs were remarkable for troponin of 0.04. His chest x-ray shows no evidence of infiltrate. PAST MEDICAL HISTORY: 1. Type 2 diabetes, insulin dependent. 2. History of diastolic congestive heart failure. MEDICATIONS: 1. Lantus 34 units subcutaneously q.a.m. 2. Cholecalciferol 400 units p.o. daily. 3. Cod liver oil 4.6 g p.o. daily. 4. Glucosamine 1000 mg cap p.o. daily. 5. Lutein 20 mg p.o. daily. 6. Ascorbic acid 500 mg p.o. daily. 7. Aspirin 81 mg p.o. daily. ALLERGIES: No known drug allergies. FAMILY HISTORY: Reviewed and noncontributory. SOCIAL HISTORY: No report of alcohol, tobacco, or drug use. The patient lives with his and states that his daughter, Jennifer Holland would be his healthcare proxy. REVIEW OF SYSTEMS: A 14-point review of systems was completed with Mr. Neves and all those not mentioned above were negative. PHYSICAL EXAMINATION GENERAL: Mr. Neevs is lying in the bed. He is in no acute distress. VITAL SIGNS: Temperature 97.8, pulse rate 76, respiratory rate 18, O2 saturation 100% on room air, blood pressure 160/79. LUNGS: Some rhonchi on the right side that clear with coughing. Otherwise clear without accessory muscle use. HEART: S1, S2. No murmur, rub, or gallop and regular. ABDOMEN: Soft, nontender with bowel sounds positive x4. EXTREMITIES: No cyanosis or edema. NEURO: He is alert, he is oriented x3. He seems confused at times about details of the recent events, but over the course of the interview, he is able to clearly describe ultimately what has happened. He moves all extremities equally. There is no facial asymmetry or focal weakness. Extraocular movements are intact. SKIN: Intact. DIAGNOSTIC STUDIES/LAB DATA: WBC 8.8, hemoglobin 14.7, hematocrit 43, platelet count 175. INR 1.02. Sodium 134, potassium 4.7, chloride 100, serum bicarbonate 26, BUN 21, creatinine 1.01, glucose 231, lactic acid 1.9. Troponin 0.04. CRP 68.89. Flu A swab is positive. Chest x-ray again shows no acute cardiopulmonary process. EKG shows sinus rhythm and no evidence of ischemia and a heart rate of about 60. ASSESSMENT: Mr. Neves is an 89-year-old male with a past medical history of diastolic congestive heart failure and diabetes, who presents to the hospital today with weakness and cough, found to have positive flu swab with confusion. Our plans are for observation in the hospital for the followin. Flu: The patient has been started on Tamiflu in the emergency room. I have also called to Dr. Zavaleta's office to let her know the he had been diagnosed with flu so that she could consider starting Tamiflu prophylaxis with the patient's . The patient is not hypoxic. He shows no filtrate on x- ray. He is hemodynamically stable. He does not meet sepsis criteria. His lactic acid is normal. 2. Type 2 diabetes. Plan to continue slightly lower dose of Lantus 30 units subcutaneously q.a.m. Blood glucoses q.a.c. with lispro sliding scale on a consistent carbohydrate diet. 3. DVT prophylaxis with heparin subcu. 4. Code status is DNR. TIME SPENT: Approximately 60 minutes were spent on the admission of this patient, more than half the time spent with the patient at the bedside reviewing the events leading up to this hospitalization, performing the physical examination, and reviewing my plan of care. DOMONIQUE AUGUSTIN NP [id number]/[facility] #: [id number] LASHA
[2017-02-03] MEDS: Heparin VIAL(*) 5000 UNITS/ML VIAL (FIVE THOUSAND) SUBCUT SCH (21:56)
[2017-02-04] MEDS: Heparin VIAL(*) 5000 UNITS/ML VIAL (FIVE THOUSAND) SUBCUT SCH ×2 (05:50→13:46)
[2017-02-04 06:16] LABS: ABS Basophils 0 10^3/ul (0-0.2); ABS Eosinophils 0.3 10^3/ul (0-0.6); ABS Lymphocytes 1.8 10^3/ul (1.0-4.8); ABS Monocytes 0.6 10^3/ul (0-0.8); ABS Nucleated RBC 0.01 10^3/ul; Hemoglobin 12.7 g/dl (14.0-18.0); Nucleated Red Blood Cells % 0.1
[2017-02-04 06:21] LABS: Eosinophil % 3.8 % (0-6); Hematocrit 36 % (42-52); Lymphocyte % 23.2 % (25-47); Mean Corpuscular HGB Conc 35 g/dl (31-36); Mean Corpuscular Hemoglobin 32 pg (27-31); Mean Corpuscular Volume 91 fL (80-94); Mean Platelet Volume 8 um3 (7.4-10.4); Platelet Count 157 10^3/ul (150-450); Red Blood Count 3.99 10^6/ul (4.0-5.4); Red Cell Distribution Width 13 % (10.5-15); White Blood Count 7.7 10^3/ul (3.5-10.8)
[2017-02-04] MEDS: NS 0.9% 1000 ML* 1,000 ML IV SCH (06:27)
[2017-02-04] MEDS: Insulin LISPRO* 1 UNITS UNIT SUBCUT SCH ×2 (07:45→11:38)
[2017-02-04] MEDS ORDERED: Aspirin EC Low Dose* 81 MG TAB.EC PO SCH (09:00)
[2017-02-04] MEDS ORDERED: Insulin GLARGINE(*) 1 UNITS UNIT SUBCUT SCH (09:00)
[2017-02-04] MEDS ORDERED: Ascorbic Acid TAB* 500 MG PO SCH (09:00)
[2017-02-04] MEDS: Oseltamivir CAP* 75 MG PO SCH (09:39)
[2017-02-04 11:40] VITALS: BP 115/64
--- NOTE | 2017-02-05 12:41 | DS ---
AMENDED REPORT NOW INCLUDES COSIGNER DESIGNATION - ESIGNED BEFORE ADJUSTMENTS CC: Bimal Wilhelm MD * DISCHARGE SUMMARY: DATE OF ADMISSION: 02/03/17 DATE OF DISCHARGE: 02/04/17 PRIMARY CARE PROVIDER: Bimal Wilhelm MD MY ATTENDING WHILE IN THE HOSPITAL: Melissa An DO * (DICTATED BY DOREEN SARGENT) PRIMARY DISCHARGE DIAGNOSIS: Influenza A. SECONDARY DISCHARGE DIAGNOSES: 1. Type 2 diabetes, insulin dependent. 2. Diastolic heart failure. 3. Dementia. STUDIES DONE WHILE IN THE HOSPITAL: Chest x-ray from 02/03/17 read as no evidence for acute cardiopulmonary disease. Electrocardiogram from 02/03/17 read as left bundle-branch block, normal sinus rhythm, increased VA interval, T-wave inversions in 3, early repolarization in V2 and V3, ST segment is not interpretable due to left bundle-branch block. No other abnormalities. QTC 425. MEDICATIONS AT DISCHARGE: 1. Vitamin D 400 mg p.o. daily. 2. Aspirin 81 mg p.o. daily. 3. Vitamin C 500 mg p.o. daily. 4. Lutein 12 mg p.o. daily. 5. Glucosamine 1000 mg p.o. daily. 6. Cod liver oil 4.6 g p.o. daily. 7. Glargine insulin 34 units subcutaneous q.a.m. 8. Tylenol 650 mg p.o. q.6 hours as needed. 9. Tessalon 100 mg p.o. b.i.d. as needed. 10. Tamiflu 75 mg p.o. b.i.d. x7. New medications at discharge: 1. Tylenol. 2. Tessalon. 3. Tamiflu. Medications discontinued at discharge: None. HOSPITAL COURSE: This is a brief summary of the patient's presentation. For more details, please see the history and physical from Domonique Augustin NP, from . In brief, the patient is an 89-year-old male with past medical history as above who came in for cough and weakness. The patient has been feeling ill with a cough and shortness of breath and was also having delusions described as psychosis, but describes this as soul traveling. The patient was found to have a flu swab. The patient was admitted for the flu for monitoring. The patient has no lactic acidosis, signs of sepsis, infiltrates on chest x-ray or hemodynamic instability. The patient improved greatly overnight with fluids. The patient's fingersticks stayed stable. The patient never had an increased white blood cell count. The patient's troponin was redrawn and was 0.04 second time. The patient's urine was not abnormal. The patient's CRP was 68.89. The patient stated in the morning he felt much better and was ready for discharge home to continue supportive care there. PHYSICAL EXAMINATION ON THE DAY OF DISCHARGE: General: The patient is an 89- year- old male who appears stated age and is sitting comfortably in bed in no acute distress. Vital Signs: At the time of discharge, temperature 97.6, pulse rate 65, respiratory rate 16, oxygen saturation 99% on room air, blood pressure 115/64. HEENT: Head normocephalic, atraumatic. Sclerae anicteric. No conjunctival injection. Nasal mucosa moist. Oral mucosa moist. Pharyngeal erythema without exudate or discharge. Neck: Supple, nontender. No lymphadenopathy. No carotid bruit auscultated. Cardiac: Regular rate and rhythm. No clicks, murmurs, gallops or rubs. Pulses 2+ in the bilateral dorsalis pedis, posterior tibialis and radial areas. No edema noted in the lower extremities. Respiratory: Clear to auscultation bilaterally. No wheezes , rales or rhonchi. Good air exchange bilaterally. Abdomen: Soft, nontender, nondistended. Bowel sounds are present. Normoactive in all four quadrants. No hepatosplenomegaly. No abdominal bruits auscultated. Genitourinary: No suprapubic tenderness, no CVA tenderness. Skin: Clean, dry, intact. No rash. Neuro: Alert and oriented x3. Cranial nerves II through XII grossly intact. No focal deficits. Psychiatric: Very pleasant and cooperative. LABORATORY DATA ON THE DAY OF DISCHARGE: White blood cell count 7.7, hemoglobin 12.7, platelet count 157. Sodium 138, potassium 3.6, chloride 108, carbon dioxide 23, anion gap 7, BUN 15, creatinine 0.84, glucose 77, calcium 8.6. Other pertinent lab values stated in the hospital course. DISCHARGE PLAN: The patient will be discharged to home. The patient's is currently sick with pneumonia. The patient states he will stay away from her and that they live in different sections of the house. The patient was also recommended to ask his primary care provider for Tamiflu prophylaxis for his . The patient was instructed to avoid excessive contact with large groups of people and for people to wear masks if they are going to be around him. The patient should continue Tamiflu for 7 more doses. The patient should follow up with his primary care provider within 1 week for general medical management and to assess his level of improvement. The patient should engage in activity as tolerated and have a consistent carbohydrate diet. The patient was found to have previously a renal mass, likely renal cell carcinoma, which he has elected not to follow up on at this time. The patient is asymptomatic, no hematuria or other abnormalities as well. TIME SPENT: Approximately 60 minutes were spent on this discharge, 30 of which were spent [id number] with the patient obtaining history and physical and discussing treatment plan as well. DOREEN SARGENT [id number]/[facility] #: [id number] LASHA
== END 2017-02-04 15:05 | disposition home or self-care (01) ==
LOC: ED 11:00 → MED 13:23
PROVIDERS: ADMIT Hospitalist; ATTEND Hospitalist
DX: J09.X2 Influenza due to identified novel influenza A virus with other respiratory manifestations (principal); E86.0 Dehydration; R41.0 Disorientation, unspecified; R44.3 Hallucinations, unspecified; R06.02 Shortness of breath; R05 Cough; R50.9 Fever, unspecified; R53.1 Weakness; R94.31 Abnormal electrocardiogram [ECG] [EKG]; E11.9 Type 2 diabetes mellitus without complications; Z79.4 Long term (current) use of insulin; I50.9 Heart failure, unspecified; R74.8 Abnormal levels of other serum enzymes
CPT/HCPCS: 36415; 71020; 80048; 80053; 81003; 83605; 83880; 84484; 85025; 85610; 85730; 86140; 87040; 87502; 93005; 94640; 94760; 96360; 96361; 99284; A9270-GY; G0378; J1644

== ENCOUNTER 2017-04-17 10:31 | Inpatient (IN) | payer MEDICARE ==
[2017-04-17] MEDS ORDERED: Magnesium Sulfate 1 GM IV* 1 GM/100 ML BAG IV ONE (11:17)
[2017-04-17 11:28] LABS: ABS Basophils 0.1 10^3/ul (0-0.2); ABS Eosinophils 0.4 10^3/ul (0-0.6); ABS Lymphocytes 1.5 10^3/ul (1.0-4.8); ABS Monocytes 0.6 10^3/ul (0-0.8); ABS Neutrophils 4.9 10^3/ul (1.5-7.7); ABS Nucleated RBC 0 10^3/ul; Eosinophil % 5.5 % (0-6); Hematocrit 38 % (42-52); Hemoglobin 13.2 g/dl (14.0-18.0); Mean Corpuscular HGB Conc 34 g/dl (31-36); Mean Corpuscular Hemoglobin 32 pg (27-31); Mean Corpuscular Volume 93 fL (80-94); Mean Platelet Volume 9 um3 (7.4-10.4); Nucleated Red Blood Cells % 0.1; Platelet Count 134 10^3/ul (150-450); Red Blood Count 4.14 10^6/ul (4.0-5.4); Red Cell Distribution Width 14 % (10.5-15); White Blood Count 7.6 10^3/ul (3.5-10.8)
--- NOTE | 2017-04-17 11:38 | RAD ---
HISTORY: Dizziness COMPARISONS: MRI dated March 07, 2017 TECHNIQUE: Multiple contiguous axial CT scans were obtained of the head without intravenous contrast. FINDINGS: HEMORRHAGE/INFARCT: There is no hemorrhage or acute infarct. MASSES/SHIFT: There is no mass or shift. EXTRA-AXIAL SPACES: There are no extra-axial fluid collections. SULCI AND VENTRICLES: There is mild diffuse and proportional enlargement of the sulci and ventricles. CEREBRUM: There are no focal parenchymal abnormalities. BRAINSTEM: There are no focal parenchymal abnormalities. CEREBELLUM: There are no focal parenchymal abnormalities. VESSELS: There is calcification of the cavernous segments of the internal carotid arteries bilaterally and of the distal vertebral arteries bilaterally. PARANASAL SINUSES: The paranasal sinuses are clear. ORBITS: The orbits are unremarkable. BONES AND SOFT TISSUE: No bone or soft tissue abnormalities are noted. OTHER: None IMPRESSION: NO ACUTE INTRACRANIAL PATHOLOGY.
[2017-04-17 11:50] LABS: EGFR Non-African American 61.7 (>60)
--- NOTE | 2017-04-17 12:06 | RAD ---
HISTORY: Dizziness COMPARISONS: February 03, 2017 VIEWS: 1: frontal portable view of the chest at 10:35 AM FINDINGS: LINES AND TUBES: None. CARDIOMEDIASTINAL SILHOUETTE: The cardiomediastinal silhouette is normal for portable technique. PLEURA: The costophrenic angles are sharp. No pleural abnormalities are noted. LUNG PARENCHYMA: The lungs are clear. ABDOMEN: The upper abdomen is clear. There is no subphrenic gas. BONES AND SOFT TISSUES: No bone or soft tissue abnormalities are noted. IMPRESSION: NO ACTIVE CARDIOPULMONARY DISEASE.
[2017-04-17] MEDS ORDERED: Magnesium Sulfate 2 GM IV* 2 GM/50 ML BAG IVPB ONE (13:30)
[2017-04-17] MEDS ORDERED: Acetaminophen TAB* 325 MG PO PRN (13:30)
[2017-04-17] MEDS ORDERED: Metoprolol Tartrate TAB* 25 MG PO SCH (13:31)
[2017-04-17] MEDS ORDERED: Potassium Chlor TAB* 20 MEQ TAB.ER PO ONE (13:35)
[2017-04-17] MEDS ORDERED: Dextrose 50% Syringe 50 ML* 25 GM/50 ML SYRINGE IV PUSH PRN (13:36)
[2017-04-17] MEDS: Heparin VIAL(*) 5000 UNITS/ML VIAL (FIVE THOUSAND) SUBCUT SCH ×2 (14:01→22:10)
[2017-04-17] MEDS: Aspirin EC TAB* 81 MG TAB.EC PO SCH (14:01)
[2017-04-17 14:23] LABS: INR 0.96 (0.77-1.02)
--- NOTE | 2017-04-17 16:45 | ED ---
Romario Lemus Gabriel, scribed for Hector Choi MD on 04/17/17 at 1128 . Complex/Multi-Sys Presentation - HPI Summary HPI Summary: This patient is a 89 year old M presenting to [facility] accompanied by his with a chief complaint of periodic weakness since 01-26-17. Patient states this has been happening for several months and occurs about once a day. Today he had just finished eating breakfast when the symptoms began. Patient reports light headedness and diaphoresis. Patient denies CP and palpitations. - History Of Current Complaint Chief Complaint: EDWeakness Time Seen by Provider: 04/17/17 10:33 Hx Obtained From: Patient Onset/Duration: Lasting Weeks, Still Present Timing: Intermittent, Lasting: Severity Currently: None Severity Initially: Moderate Associated Signs And Symptoms: Positive: Weakness, Other - light headedness and diaphoresis. Negative: Chest Pain, Palpitations - Allergies/Home Medications Allergies/Adverse Reactions: Allergies Allergy/AdvReac Type Severity Reaction Status Date / Time No Known Allergies Allergy Verified 04/17/17 10:48 Home Medications: Home Medications [place] Oil (Pharmaceutic Aid)* 30 ml PO ONCE 04/17/17 [History Confirmed ] PMH/Surg Hx/FS Hx/Imm Hx Endocrine/Hematology History: Reports: Hx Diabetes Denies: Hx Thyroid Disease Cardiovascular History: Reports: Other Cardiovascular Problems/Disorders - DIABETES Denies: Hx Hypertension, Hx Pacemaker/ICD Respiratory History: Denies: Hx Asthma, Hx Chronic Obstructive Pulmonary Disease (COPD) GI History: Denies: Hx Ulcer History: Denies: Hx Dialysis, Hx Renal Disease Sensory History: Reports: Hx Contacts or Glasses, Hx Hearing Aid Opthamlomology History: Reports: Hx Contacts or Glasses Psychiatric History: Denies: Hx Panic Disorder - Cancer History Cancer Type, 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 - Surgical History Surgery Procedure, Year, and Place: 1954 app[address] Infectious Disease History: No Infectious Disease History: Denies: Hx Clostridium Difficile, Hx Hepatitis, Hx Human Immunodeficiency Virus (HIV), Hx of Known/Suspected MRSA, Hx Shingles, Hx Tuberculosis, Hx Known/ Suspected VRE, Hx Known/Suspected VRSA, History Other Infectious Disease, Traveled Outside the [place] in Last 30 Days - Family History Known Family History: Positive: Cardiac Disease, Hypertension, Diabetes - Social History Alcohol Use: None Substance Use Type: Reports: None Smoking Status (MU): Former Smoker Type: Cigarettes Have You Smoked in the Last Year: No Review of Systems Positive: Skin Diaphoresis Negative: Palpitations, Chest Pain Neurological: Other - light headedness Positive: Weakness All Other Systems Reviewed And Are Negative: Yes Physical Exam - Summary Physical Exam Summary: VITAL SIGNS: Reviewed. GENERAL: Patient is a well-developed and nourished male who is lying comfortable in the stretcher. Patient is not in any acute respiratory distress. HEAD AND FACE: No signs of trauma. No ecchymosis, hematomas or skull depressions. No sinus tenderness. EYES: PERRLA, EOMI x 2, No injected conjunctiva, no nystagmus. EARS: Hearing grossly intact. Ear canals and tympanic membranes are within normal limits. MOUTH: Oropharynx within normal limits. NECK: Supple, trachea is midline, no adenopathy, no JVD, no carotid bruit, no c- spine tenderness, neck with full ROM. CHEST: Symmetric, no tenderness at palpation LUNGS: Clear to auscultation bilaterally. No wheezing or crackles. CVS: Regular rate and rhythm, S1 and S2 present, no murmurs or gallops appreciated. ABDOMEN: Soft, non-tender. No signs of distention. No rebound no guarding, and no masses palpated. Bowel sounds are normal. EXTREMITIES: FROM in all major joints, no edema, no cyanosis or clubbing. NEURO: Alert and oriented x 3. No acute neurological deficits. Speech is normal and follows commands. SKIN: Dry and warm Triage Information Reviewed: Yes Vital Signs On Initial Exam: Initial Vitals Temp Pulse Resp BP Pulse Ox 98.2 F 63 12 121/74 100 04/17/17 10:33 04/17/17 10:33 04/17/17 10:33 04/17/17 10:33 04/17/17 10:33 Vital Signs Reviewed: Yes Diagnostics - Vital Signs Vital Signs Temp Pulse Resp BP Pulse Ox 04/17/17 11:00 58 20 134/72 100 04/17/17 10:38 63 20 99 04/17/17 10:36 121/74 04/17/17 10:33 98.2 F 63 12 121/74 100 - Laboratory Lab Results: Lab Results 03/11/18 03/11/18 03/11/18 Range/Units 11:20 11:20 11:20 WBC 7.6 (3.5-10.8) 10^3/ul RBC 4.14 (4.0-5.4) 10^6/ul Hgb 13.2 L (14.0-18.0) g/dl Hct 38 L (42-52) % MCV 93 (80-94) fL MCH 32 H (27-31) pg MCHC 34 (31-36) g/dl RDW 14 (10.5-15) % Plt Count 134 L (150-450) 10^3/ul MPV 9 (7.4-10.4) um3 Neut % (Auto) 65.2 (38-83) % Lymph % (Auto) 20.0 L (25-47) % [place] % (Auto) 8.4 H (0-7) % Eos % (Auto) 5.5 (0-6) % Baso % (Auto) 0.9 (0-2) % Absolute Neuts (auto) 4.9 (1.5-7.7) 10^3/ul Absolute Lymphs (auto) 1.5 (1.0-4.8) 10^3/ul Absolute Monos (auto) 0.6 (0-0.8) 10^3/ul Absolute Eos (auto) 0.4 (0-0.6) 10^3/ul Absolute Basos (auto) 0.1 (0-0.2) 10^3/ul Absolute Nucleated RBC 0 10^3/ul Nucleated RBC % 0.1 INR (Anticoag Therapy) (0.77-1.02) APTT (26.0-36.3) seconds Sodium 137 (133-145) mmol/L Potassium 3.8 (3.5-5.0) mmol/L Chloride 107 (101-111) mmol/L Carbon Dioxide 24 (22-32) mmol/L Anion Gap 6 (2-11) mmol/L BUN 23 (6-24) mg/dL Creatinine 1.12 (0.67-1.17) mg/dL Est GFR ( Amer) 79.4 (>60) Est GFR (Non-Af Amer) 61.7 (>60) BUN/Creatinine Ratio 20.5 H (8-20) Glucose 225 H (70-100) mg/dL Lactic Acid (0.5-2.0) mmol/L Calcium 9.0 (8.6-10.3) mg/dL Magnesium 1.8 L (1.9-2.7) mg/dL Total Bilirubin 0.50 (0.2-1.0) mg/dL AST 16 (13-39) U/L ALT 15 (7-52) U/L Alkaline Phosphatase 63 (34-104) U/L Total Creatine Kinase 62 (10-223) U/L Troponin I 0.03 (<0.04) ng/mL C-Reactive Protein < 1.00 (< 5.00) mg/L B-Natriuretic Peptide 74 ( - 100) pg/mL Total Protein 6.1 L (6.4-8.9) g/dL Albumin 3.4 (3.2-5.2) g/dL Globulin 2.7 (2-4) g/dL Albumin/Globulin Ratio 1.3 (1-3) TSH 6.37 H (0.34-5.60) mcIU/mL Free T4 0.78 (0.61-1.12) ng/dL Thyroxine (T4) 5.81 L (6.09-12.23) mcg/mL Free T3 3.30 (2.5-3.9) pg/mL Total T3 0.97 (0.87-1.78) ng/mL 04/17/17 04/17/17 Range/Units 11:20 11:20 WBC (3.5-10.8) 10^3/ul RBC (4.0-5.4) 10^6/ul Hgb (14.0-18.0) g/dl Hct (42-52) % MCV (80-94) fL MCH (27-31) pg MCHC (31-36) g/dl RDW (10.5-15) % Plt Count (150-450) 10^3/ul MPV (7.4-10.4) um3 Neut % (Auto) (38-83) % Lymph % (Auto) (25-47) % [place] % (Auto) (0-7) % Eos % (Auto) (0-6) % Baso % (Auto) (0-2) % Absolute Neuts (auto) (1.5-7.7) 10^3/ul Absolute Lymphs (auto) (1.0-4.8) 10^3/ul Absolute Monos (auto) (0-0.8) 10^3/ul Absolute Eos (auto) (0-0.6) 10^3/ul Absolute Basos (auto) (0-0.2) 10^3/ul Absolute Nucleated RBC 10^3/ul Nucleated RBC % INR (Anticoag Therapy) 0.96 (0.77-1.02) APTT 29.3 (26.0-36.3) seconds Sodium (133-145) mmol/L Potassium (3.5-5.0) mmol/L Chloride (101-111) mmol/L Carbon Dioxide (22-32) mmol/L Anion Gap (2-11) mmol/L BUN (6-24) mg/dL Creatinine (0.67-1.17) mg/dL Est GFR ( Amer) (>60) Est GFR (Non-Af Amer) (>60) BUN/Creatinine Ratio (8-20) Glucose (70-100) mg/dL Lactic Acid 1.7 (0.5-2.0) mmol/L Calcium (8.6-10.3) mg/dL Magnesium (1.9-2.7) mg/dL Total Bilirubin (0.2-1.0) mg/dL AST (13-39) U/L ALT (7-52) U/L Alkaline Phosphatase (34-104) U/L Total Creatine Kinase (10-223) U/L Troponin I (<0.04) ng/mL C-Reactive Protein (< 5.00) mg/L B-Natriuretic Peptide ( - 100) pg/mL Total Protein (6.4-8.9) g/dL Albumin (3.2-5.2) g/dL Globulin (2-4) g/dL Albumin/Globulin Ratio (1-3) TSH (0.34-5.60) mcIU/mL Free T4 (0.61-1.12) ng/dL Thyroxine (T4) (6.09-12.23) mcg/mL Free T3 (2.5-3.9) pg/mL Total T3 (0.87-1.78) ng/mL Result Diagrams: 04/17/17 11:20 03/11/18 11:20 Lab Statement: Any lab studies that have been ordered have been reviewed, and results considered in the medical decision making process. - Radiology CXR Radiology Interpretation Completed By: Radiologist - no active cardiopulmonary disease ED physician has reviewed this radiology report. - CT CT Brain CT Interpretation Completed By: Radiologist - no acute intracranial pathology ED physician has reviewed this radiology report. - EKG 0940 Cardiac Rate: NL EKG Rhythm: Sinus Rhythm - at 60 BPM EKG Interpretation: Q wave in 3 and AVF, no ST elevations Complex Multi-Symp Course/Dx Assessment/Plan: This patient is a 89 year old M presenting to [facility] accompanied by his with a chief complaint of periodic weakness since . Patient states this has been happening for several months and occurs about once a day. Today he had just finished eating breakfast when the symptoms began. Patient reports light headedness and diaphoresis. Patient denies CP and palpitations. An EKG reveals Q wave in 3 and AVF, no ST elevations. CXR reveals, per radiologist, no active cardiopulmonary disease. CT brain reveals, per radiologist, no acute intracranial pathology. Test results with no significant abnormalities except for slight anemia, glucose of 225, magnesium of 1.8, and a TSH 6.37. In the ED course the patient was given magnesium because the strip from EMS showed the patient had Vtach or torsades de pointes. At this point discussed patient care with Dr. Rizvi and she has accepted the patient for admission. The patient is hemodynamically stable and alert and orientedx3. - Diagnoses Provider Diagnoses: Arrhythmia, Dizziness, rule out Vtach vs toradses de pointes - Physician Notifications Discussed Care Of Patient With: Mary Rizvi Time Discussed With Above Provider: 12:02 Instructed by Provider To: Admit As Inpatient Discharge - Discharge Plan Condition: Stable Disposition: ADMITTED TO [facility] The documentation as recorded by the Romario coates Gabriel accurately reflects the service I personally performed and the decisions made by me, Hector Choi MD.
[2017-04-17] MEDS: Insulin LISPRO* 1 UNITS UNIT SUBCUT SCH (17:28)
--- NOTE | 2017-04-17 20:44 | HP ---
CC: Dr. Wilhelm; Dr. Richards * HISTORY AND PHYSICAL: DATE OF ADMISSION: 04/17/17 PRIMARY CARE PROVIDER: Dr. Wilhelm. CONSULTING BAR MANAGER: Dr. Richards. ATTENDING PHYSICIAN WHILE IN THE HOSPITAL: Dr. Mary Rizvi * (report dictated by Waldo Bellamy NP). CHIEF COMPLAINT: 1. Dizziness. 2. Lightheadedness. 3. Almost passed out. HISTORY OF PRESENT ILLNESS: Mr. Neves is an 89-year-old male patient with a history of mild dementia, diabetes, who takes Lantus, and history of diastolic heart failure in the past. He came in to the ED today. He says that in January or on New Year's time, he had an episode of flu and he has not really 100% recovered from that. He has noticed that in the last 2-1/2 to last 3 weeks , he has had episodes of intermittent dizziness, almost everyday and lightheadedness at times. When he gets these episodes, he feels short of breath. He never had any chest pain with the exception of today. He had some chest discomfort. He says that today's episode was worse than the episodes he has had and lasted longer. He says that he was dizzy. He felt lightheaded. He felt almost like he might pass out. He felt short of breath. He got nausea. He felt a little bit of chest heaviness. He was concerned, he told his to call 911. When he got into the ambulance, they noted that he appeared to be in V-tach. He went out of the V-tach on his own with vagal maneuvers. He denies having any symptoms now. He says he is feeling better. He denies any chest pain or shortness of breath. He says he has had intermittent episodes like this, but not quite as severe today for the last 2- 1 /2 weeks. He actually did see one of our local cardiologists on Tuesday for this and outpatient workup was being initiated. He says that he has not been having any exertional chest pain. He denies any more recent episodes of fever or coughing. No recent change in meds with the exception he is on aspirin. He denies having any abdominal pain. Again, no nausea, vomiting, or diarrhea, but because of the fact that he was found to be in V-tach, we were asked to evaluate for admission. PAST MEDICAL HISTORY: Significant for: 1. Diabetes. 2. Mild dementia. 3. History of diastolic failure in the past. 4. Left kidney mass. PAST SURGICAL HISTORY: Denied. HOME MEDICATIONS: Include: 1. Vitamin D 400 units p.o. daily. 2. [place] oil 30 cc daily. 3. Lutein 40 mg p.o. daily. 4. Lantus 40 units subcu q.a.m. 5. Glucosamine 2000 units p.o. daily. 6. Vitamin C 500 mg p.o. daily. ALLERGIES TO MEDICATIONS: Include no known drug allergies. FAMILY HISTORY: He says his mother had a history of hypertension. Father had a history of prostate cancer. SOCIAL HISTORY: He is a former smoker, he quit 40 years ago. He occasionally drinks alcohol. Surrogate decision maker is his . REVIEW OF SYSTEMS: There is no documented fever. He denied any significant weight change. There was no ear discharge. He denies having any rhinorrhea. There is no sore throat. No thyroid enlargement. Denied having any chest pain. There was no orthopnea. There is no nocturnal dyspnea. He denies having any abdominal pain. There was again chest pain from my HPI, but again no vomiting or diarrhea. No loss of consciousness. He did admit to having dizziness. No seizure-like activity was reported and no skin ulcerations. Review of 14 systems was completed, all others negative. PHYSICAL EXAMINATION GENERAL: At this time, Mr. Neves is an 89-year-old male patient. He appears to be well nourished, well developed. He does not appear to be in any acute distress. VITAL SIGNS: Blood pressure 138/86, with a pulse of 67, respirations were 18, O2 sat 96%, temperature 98.2. HEENT: Head: Atraumatic, normocephalic. Eyes: EOMs are intact. Sclerae anicteric and not pale. Throat: Oral mucosa appears to be moist. No oropharyngeal erythema. NECK: Supple. LUNGS: Clear to auscultation bilaterally. No wheezes, rales, or rhonchi. HEART: Sounds S1, S2. Regular rate and rhythm. No murmurs, rubs or gallops. ABDOMEN: Soft, flat, and nontender. Bowel sounds present. EXTREMITIES: Pulses were 2+ throughout. He had +1 edema near the ankles. He had 5/5 strength. NEUROLOGIC: He is awake, alert, oriented x3. Tongue is midline. No gross focal deficits. SKIN: The skin was grossly intact. DIAGNOSTIC STUDIES/LAB DATA: Labs today revealed WBC of 7.6, RBC of 4.14, hemoglobin 13.2, hematocrit of 38, platelet count of 134. Sodium of 137, potassium of 3.8, chloride of 107, bicarb 24, BUN 23, creatinine 1.12, glucose of 225, lactic 1.7, calcium of 9, mag 1.8. Total bili 0.5, AST 16, ALT 15, alk phos 63. CK 62. Troponin 0.03. CRP less than 1. BNP of 74. TSH of 6.37. The patient did have a brain CT obtained today, which showed no acute intracranial pathology. He had a chest x-ray obtained today, which showed no active cardiopulmonary disease. There was an EKG obtained today, which showed a normal sinus rhythm, rate of 60. He did have a first-degree AV block. His TX interval was 355. His QTc was 437. Old medical records were reviewed. ASSESSMENT AND PLAN: Mr. Neves is an 89-year-old male patient coming in to the ED today with complaints of lightheadedness, not feeling well, found to have ventricular tachycardia. He will be admitted under inpatient status for: 1. Ventricular tachycardia. Etiology is unclear. Certainly ischemia could be concerning for this in a patient who is diabetic. He is not having chest pain now. There are no ischemic changes on the EKG. I did start him on aspirin and beta- tianna. Should the trops go up, I will start him on statin and also start him on a heparin drip. We will trend his troponins. We will get an echo. I consulted with Dr. Richards. He wants to make the patient n.p.o. for possible heart catheterization in the morning. I did order the echo as well and we will continue to follow him closely. If he goes back into ventricular tachycardia again, I will certainly put him on amiodarone drip. I am, at this point, going to go ahead and give him an additional 2 g of magnesium and some potassium as well. 2. Left kidney mass. Follow with Dr. Richards. 3. Diabetes. He will be on lispro sliding scale with his Lantus, half dose Lantus tomorrow. 4. Congestive heart failure. He does not appear to be in failure at this point. We will monitor. 5. Dementia. Continue with supportive care. 6. DVT prophylaxis. He will be placed on heparin subcu. 7. Code status. He wishes to be a DNR. There is a MOLST form in the computer. 8. Fluids, electrolytes, and nutrition. He can have a consistent carb diet. TIME SPENT: On admission was 60 minutes; greater than half time was spent face- to- face with the patient obtaining my history physical, the other half time was spent going over the plan of care of the patient and implementing the plan of care. I did discuss the plan of care with my attending, Dr. Rizvi, she is in agreement. WALDO BELLAMY, ENDER [id number]/CPS #: [id number]
[2017-04-18 05:24] LABS: ABS Basophils 0.1 10^3/ul (0-0.2); ABS Eosinophils 0.4 10^3/ul (0-0.6); ABS Lymphocytes 1.8 10^3/ul (1.0-4.8); ABS Monocytes 0.5 10^3/ul (0-0.8); ABS Neutrophils 3.8 10^3/ul (1.5-7.7); ABS Nucleated RBC 0 10^3/ul; Eosinophil % 5.8 % (0-6); Hematocrit 41 % (42-52); Hemoglobin 14.3 g/dl (14.0-18.0); Lymphocyte % 27.3 % (25-47); Mean Corpuscular HGB Conc 35 g/dl (31-36); Mean Corpuscular Hemoglobin 32 pg (27-31); Mean Corpuscular Volume 92 fL (80-94); Mean Platelet Volume 9 um3 (7.4-10.4); Nucleated Red Blood Cells % 0; Platelet Count 140 10^3/ul (150-450); Red Blood Count 4.52 10^6/ul (4.0-5.4); Red Cell Distribution Width 14 % (10.5-15); White Blood Count 6.5 10^3/ul (3.5-10.8)
[2017-04-18 05:36] LABS: INR 0.95 (0.77-1.02)
[2017-04-18 05:45] LABS: EGFR Non-African American 68.8 (>60)
[2017-04-18] MEDS: Heparin VIAL(*) 5000 UNITS/ML VIAL (FIVE THOUSAND) SUBCUT SCH ×3 (06:10→22:01)
[2017-04-18] MEDS: Insulin LISPRO* 1 UNITS UNIT SUBCUT SCH ×3 (07:44→18:28)
[2017-04-18] MEDS: Aspirin EC TAB* 81 MG TAB.EC PO SCH (08:04)
[2017-04-18] MEDS: Insulin GLARGINE(*) 1 UNITS UNIT SUBCUT SCH (08:04)
--- NOTE | 2017-04-18 08:37 | PN ---
Subjective Date of Service: 04/18/17 Interval History: Mr. Neves states that he is feeling quite well today and denies any complaint after his pacemaker was placed. Objective Active Medications: Acetaminophen (Tylenol Tab*) 650 mg PO Q4H PRN Aspirin (Aspirin Ec Low Dose*) 81 mg PO DAILY CARLA Dextrose (D50w Syringe 50 Ml*) 12.5 gm IV PUSH .FOR FS < 60 - SS PRN Heparin Sodium (Porcine) (Heparin Vial(*)) 5,000 units SUBCUT Q8HR CARLA Insulin Glargine (Lantus(*)) 40 units SUBCUT QAM CARLA Insulin Human Lispro (Humalog*) 0 units SUBCUT AC CARLA Vital Signs: Temp Pulse Resp BP Pulse Ox 98.5 F 52 18 105/57 96 04/18/17 07:34 04/18/17 07:00 04/18/17 07:00 04/18/17 07:00 04/18/17 07:00 Oxygen Devices in Use Now: None Appearance: Male lying in bed in NAD Eyes: No Scleral Icterus Ears/Nose/Mouth/Throat: Mucous Membranes Moist Neck: Trachea Midline Respiratory: Symmetrical Chest Expansion and Respiratory Effort, Clear to Auscultation Cardiovascular: NL Sounds; No Murmurs; No JVD, No Edema Abdominal: NL Sounds; No Tenderness; No Distention Lymphatic: No Cervical Adenopathy Extremities: No Edema Skin: No Rash or Ulcers Neurological: Alert and Oriented x 3, NL Muscle Strength and Tone Nutrition: Taking PO's Result Diagrams: 04/18/17 05:05 04/18/17 05:05 Additional Lab and Data: . Assess/Plan/Problems-Billing Assessment: Mr. Neves is an 89 yo M with a PMH of diabetes, dementia, diastolic CHF and kidney mass who was admitted on 04/17/17 with lightheadedness and found to have vtach. - Patient Problems (1) Lightheadedness Comment: - Suspected to be secondary to bradycardia and sick sinus syndrome. - Now with pacemaker, appreciate cardiology input. (2) V-tach Comment: - Vtach noted in ambulance on way to hospital, cardiology suspects this was likely artifact. - Unable to tolerate beta blockers. Mag and potassium repleted. - Appreciate cardiology consultation. (3) Diabetes mellitus Comment: - BGs 90-250. - Continue lantus with lispro SSI coverage with meals. (4) Diastolic CHF Comment: - No evidence of acute exacerbation. (5) DVT prophylaxis Comment: - Heparin SQ. (6) DNR (do not resuscitate) Comment: Status and Disposition: Inpatient. Anticipate discharge to home when medically stable.
--- NOTE | 2017-04-18 09:19 | ECHO ---
Patient: LACEY TOVAR Rec#: [id number] : 1925 Date: 04/18/2017 Age: 89y Height: 185.42 cm / 73.0 in Weight: 90.72 kg / 199.9 lbs Sex: M BSA: 2.15 Room#: ICU 5 Admit Date#: 04/18/2017 Type: Inpatient Referring: Waldo Bellamy NP Reading: Marck Richards MD [place] Placer: Gisell Barlow,GUERDACS,RDMS CC: Bimal Wilhelm MD Transthoracic Echocardiogram Indication: Vtach BP: 105/57 HR: 50 Rhythm: Bradycardia Findings History: DM, CHF Technical Comments: The study quality is good. Left Ventricle: The left ventricular chamber size is normal. Mild concentric left ventricular hypertrophy is observed. Basal interventricular septum shows moderate thickening. Global left ventricular wall motion and contractility are within normal limits. Left ventricular systolic function is at the lower limits of normal. The estimated ejection fraction is 50-55%. Abnormal left ventricular diastolic filling is observed, consistent with impaired relaxation. Left Atrium: The left atrium is moderately dilated. Right Ventricle: The right ventricular chamber size and systolic function are within normal limits. Right Atrium: The right atrium is slightly dilated. Aortic Valve: The aortic valve is trileaflet. The aortic valve leaflets are mildly thickened. Systolic excursion of the aortic valve is normal. There is a trace of aortic regurgitation. There is no evidence of aortic stenosis. Mitral Valve: The mitral valve leaflets are mildly thickened. There is a trace of mitral regurgitation. There is no evidence of mitral stenosis. Tricuspid Valve: The tricuspid valve leaflets are normal. There is trace tricuspid regurgitation. Unable to estimate the right ventricular systolic pressure. Pulmonic Valve: The pulmonic valve structure is not well visualized. Pericardium: There is no significant pericardial effusion. Aorta: There is no dilatation of the ascending aorta. There is no dilatation of the aortic arch. There is mild dilatation of the aortic root. Pulmonary Artery: The main pulmonary artery is not well visualized. Venous: The inferior vena cava is not visualized. Conclusions Global left ventricular wall motion and contractility are within normal limits. Left ventricular systolic function is at the lower limits of normal. The estimated ejection fraction is 50-55%. The right ventricular chamber size and systolic function are within normal limits. There is a trace of aortic regurgitation. There is a trace of mitral regurgitation. There is trace tricuspid regurgitation. Unable to estimate the right ventricular systolic pressure. There is no significant pericardial effusion. Measurements Name Value Normal Range RVIDd (AP) 2D 2.3 cm (0.9 - 2.6) RVDdMajor (2D) 3.5 cm (2.2 - 4.4) RAd ISD 4CH 4.7 cm (3.4 - 4.9) RA (A4C)W 5.1 cm (2.9 - 4.6) IVSd (2D) 2 cm (0.6 - 1) LVPWd (2D) 1.1 cm (0.6 - 1) LVIDd (2D) 4.3 cm (3.6 - 5.4) LVIDs (2D) 3 cm - LV FS (2D) 32 % (25 - 45) Aortic Annulus 2.4 cm (1.4 - 2.6) Ao root diameter (2D) 4.1 cm (2.1 - 3.5) Ascending Ao 3.4 cm (2.1 - 3.4) Aortic arch 2.4 cm (1.8 - 3.4) LA dimension (AP) 2D 3.6 cm (2.3 - 3.8) LAd ISD 4CH 6 cm (2.9 - 5.3) LA ISD 4CH W 5.1 cm (2.5 - 4.5) Name Value Normal Range LA ESV SP 4CH (A/L) 78.23 ml - LA ESV SP 2CH (A/L) 99.57 ml - LA ESV BP (A/L) 95.77 ml - LA ESV BP (A/L) index 45 ml/m2 - LA ESV SP 4CH (MOD) 70.94 ml - LA ESV SP 2CH (MOD) 95.39 ml - Name Value Normal Range MV E-wave Vmax 0.8 m/sec - MV deceleration time 350.5 msec - MV A-wave Vmax 1.2 m/sec - MV E:A ratio 0.7 ratio - LV septal e' Vmax 0.05 m/sec - LV lateral e' Vmax 0.06 m/sec - LV E:e' septal ratio 16 ratio - LV E:e' lateral ratio 13 ratio - Name Value Normal Range AV Vmax 1.2 m/sec - AV VTI 28 cm - AV peak gradient 6 mmHg - AV mean gradient 3.1 mmHg - LVOT Vmax 0.8 m/sec - LVOT VTI 20 cm - LVOT peak gradient 2.6 mmHg - LVOT mean gradient 1.6 mmHg - BLAYNE Vmax 0.6 m/sec - Name Value Normal Range MV Vmax 1.2 m/sec - MV VTI 47 cm - MV peak gradient 6 mmHg - MV mean gradient 2.3 mmHg - MV PHT 108 msec - MVA (PHT) 2 cm2 - Name Value Normal Range RAP 8 mmHg -
[2017-04-18] MEDS ORDERED: ceFAZolin 1 GM VIAL(*) 1 GM in NS 0.9% 50 ML* 50 ML IVPB ONE (09:31)
[2017-04-18] MEDS ORDERED: Diazepam TAB(*) 5 MG PO ONE (09:31)
[2017-04-18] MEDS ORDERED: ceFAZolin 2 GM PREMIX (*) 2 GM/50 ML BAG IVPB ONE (09:31)
[2017-04-18] MEDS ORDERED: ceFAZolin VIAL 1 GM in NS *SYRINGE * * 10 ML ONE (10:00)
[2017-04-18] MEDS: NS 0.9% 1000 ML* 1,000 ML IV SCH ×2 (10:03→19:58)
[2017-04-18] MEDS ORDERED: D5W 1/2 NS 1000 ML BAG* 1,000 ML IV SCH (10:44)
[2017-04-18] MEDS ORDERED: Lidocaine 1% INJ* 10 MG/ML 30 ML SDV ONE (11:23)
[2017-04-18] MEDS ORDERED: Midazolam* 1 MG/ML 5 ML VIAL (5 MG) ONE (11:23)
[2017-04-18] MEDS ORDERED: fentaNYL* 50 MCG/ML 2 ML VIAL (100 MCG VIAL) ONE (11:23)
[2017-04-18] MEDS ORDERED: Naloxone* 0.4 MG/ML 1 ML VIAL ONE (11:24)
[2017-04-18] MEDS ORDERED: Flumazenil* 0.1 MG/ML 5 ML MDV ONE (11:24)
[2017-04-18] MEDS ORDERED: oxyCODONE/Acetamin 5/325 MG* TAB PO PRN (12:58)
--- NOTE | 2017-04-18 15:11 | CONS ---
CC: Bimal Wilhelm MD; Daren Soto DO; Demetrio Reyna MD CARDIOLOGY CONSULTATION: DATE OF CONSULT: 04/18/17 INDICATION FOR CONSULTATION: Syncope, bradycardia. 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 The patient states that he was at home yesterday, he was in the kitchen and then felt profoundly weak. He sort of slid down under the ground and was unable to get up. He just felt profoundly fatigued. He denied any true syncopal episode. He denied any headache. He denied any palpitations. He denied any shortness of breath. His called the ambulance. On arrival, the patient was in normal sinus rhythm at 60 beats per minute. The patient was transported to the emergency room. On transport, he did have a documented episode of arrhythmia. It was a varying access ventricular tachycardia potentially consistent with Torsade. However, his finger pulse ox showed that his pulse oximetry was in a regular rhythm at 65 beats per minute with an oxygen saturation of 95%. I think this arrhythmia was truly artifact. Overnight, the patient did not have any further episodes of near syncope or fatigue. However, he did have an episode of severe bradycardia where he had a non-conducted P-wave with the heart rate down to 30 beats per minute. In speaking with the patient, he actually had a cardiology consultation with Dr. Soto last 04/15/17, at which time he was describing episodes of profound weakness and dizziness. At that time, Dr. Soto ordered a stress test and a Holter monitor. The patient was seen by Dr. Long back in 2013 for somewhat similar episodes. At that time, a Holter monitor showed significant bradycardia as well as a 3- second pause and a permanent pacemaker was recommended at that time. PAST MEDICAL HISTORY: Significant for: 1. Diabetes. 2. Dementia. 3. He has a renal mass which is going to be followed. PAST SURGICAL HISTORY: Appendectomy. The patient did have episode of syncope back in 2013, which prompted the consult with Dr. Long. This occurred when he was driving. MEDICATIONS: Outpatient medications: 1. Multiple supplements. 2. Insulin as directed. ALLERGIES: No known drug allergies. FAMILY HISTORY: No family history early coronary artery disease or cardiac arrhythmias. SOCIAL HISTORY: He is . He is retired. He is a former smoker. He quit many years ago in 1968. Rare alcohol use. He does exercise 3 to 4 times per week. He drinks decaffeinated coffee. REVIEW OF SYSTEMS: Reviewed from Dr. Soto's note. PHYSICAL EXAM: Vital Signs: Height is 6 feet 2 inches, weight is 197 pounds. Heart rate is 54, respiratory rate 20, blood pressure 104/60, temperature 98.5. HEENT: Sclerae anicteric. Oropharynx is pink without erythema. Neck: Carotids are 2+ without bruits. JVD is normal. Thyroid is normal. Cardiac: S1 and S2 without any murmurs, rubs, or gallops. Lungs: Clear to auscultation bilaterally. There is no dullness to percussion. Abdomen: Soft, nontender, and nondistended with normoactive bowel sounds. Extremities: Show no edema. He has 2+ pulses throughout. Neurologic: The patient is awake, alert, and oriented. He moves all 4 extremities equally. DIAGNOSTIC STUDIES/LAB DATA: White count 6.5, hemoglobin 14, hematocrit 41, and platelet count 140,000. Chemistries within normal limits. Troponins are negative x2. TSH 6.07. Free T4 of 0.78 and normal. EKG demonstrates sinus bradycardia with frequent PVCs. An echocardiogram today showed normal LV size and systolic function. No significant valvular abnormalities. IMPRESSION: This is an 89-year-old gentleman who has a history of sick sinus syndrome who has had multiple episodes of near syncope and profound fatigue. He had another of these episodes yesterday. Overnight in the hospital, he did have bradycardia down to 30 beats per minute. The patient has been diagnosed with sick sinus syndrome. It is my recommendation that the patient undergo permanent dual chamber pacemaker implantation. The risks and benefits of this were described in detail and the patient is willing to proceed. The patient is willing to rescind his DNR status during and certainly after the procedure and then it will be reinstated. The patient will continue his workup with Dr. Soto as an outpatient. [id number]/[facility] #: [id number] [facility]
--- NOTE | 2017-04-18 15:14 | RAD ---
HISTORY: Status post pacemaker placement COMPARISONS: April 17, 2017 VIEWS: 1: frontal portable view of the chest at 2:45 PM FINDINGS: Evaluation of the left lower chest is somewhat limited by hand position. LINES AND TUBES: A left-sided pacemaker is noted. The leads appear intact and overlie the cardiac silhouette. CARDIOMEDIASTINAL SILHOUETTE: The cardiomediastinal silhouette is normal for portable technique. PLEURA: The costophrenic angles are sharp. No pleural abnormalities are noted. There is no appreciable pneumothorax. LUNG PARENCHYMA: The lungs are clear. ABDOMEN: The upper abdomen is clear. There is no subphrenic gas. BONES AND SOFT TISSUES: No bone or soft tissue abnormalities are noted. IMPRESSION: STATUS POST PACEMAKER PLACEMENT.
[2017-04-18] MEDS: ceFAZolin 1 GM VIAL(*) 1 GM in NS 0.9% 50 ML* 50 ML IVPB SCH (19:58)
[2017-04-19] MEDS: ceFAZolin 1 GM VIAL(*) 1 GM in NS 0.9% 50 ML* 50 ML IVPB SCH ×2 (04:09→11:33)
[2017-04-19] MEDS: Heparin VIAL(*) 5000 UNITS/ML VIAL (FIVE THOUSAND) SUBCUT SCH (05:39)
--- NOTE | 2017-04-19 08:14 | PN ---
Subjective Date of Service: 04/19/17 Interval History: Mr. Neves denies complaint and is eager for discharge to home. Objective Active Medications: Acetaminophen (Tylenol Tab*) 650 mg PO Q4H PRN Aspirin (Aspirin Ec Low Dose*) 81 mg PO DAILY CARLA Dextrose (D50w Syringe 50 Ml*) 12.5 gm IV PUSH .FOR FS < 60 - SS PRN Heparin Sodium (Porcine) (Heparin Vial(*)) 5,000 units SUBCUT Q8HR CARLA Sodium Chloride (Ns 0.9% 1000 Ml*) 1,000 mls @ 75 mls/hr IV PER RATE CARLA Cefazolin Sodium 1 gm/ Sodium (Chloride) 50 mls @ 200 mls/hr IVPB Q8H CARLA Insulin Glargine (Lantus(*)) 40 units SUBCUT QAM CARLA Insulin Human Lispro (Humalog*) 0 units SUBCUT AC CARLA Oxycodone/Acetaminophen (Percocet 5/325 Tab*) 1 tab PO Q4H PRN Vital Signs: Temp Pulse Resp BP Pulse Ox 98.4 F 73 20 138/66 100 04/19/17 03:37 04/19/17 03:37 04/19/17 03:37 04/19/17 03:37 04/19/17 03:37 Oxygen Devices in Use Now: None Appearance: Male lying in bed in NAD Eyes: No Scleral Icterus Ears/Nose/Mouth/Throat: Mucous Membranes Moist Neck: Trachea Midline Respiratory: Symmetrical Chest Expansion and Respiratory Effort, Clear to Auscultation Cardiovascular: NL Sounds; No Murmurs; No JVD, No Edema Abdominal: NL Sounds; No Tenderness; No Distention Lymphatic: No Cervical Adenopathy Extremities: No Edema Skin: No Rash or Ulcers Neurological: Alert and Oriented x 3, NL Muscle Strength and Tone Nutrition: Taking PO's Result Diagrams: 04/18/17 05:05 04/18/17 05:05 Additional Lab and Data: . Assess/Plan/Problems-Billing Assessment: Mr. Neves is an 89 yo M with a PMH of diabetes, dementia, diastolic CHF and kidney mass who was admitted on 04/17/17 with lightheadedness and found to have vtach. - Patient Problems (1) Lightheadedness Comment: - Suspected to be secondary to bradycardia and sick sinus syndrome. - Now with pacemaker, appreciate cardiology input. (2) V-tach Comment: - Vtach noted in ambulance on way to hospital, cardiology suspects this was likely artifact. - Unable to tolerate beta blockers. Mag and potassium repleted. - Appreciate cardiology consultation. (3) Diabetes mellitus Comment: - BGs 90-250, but 50 this AM likely secondary to decreased intake. - Plan for 1/2 dose lantus now and resume per routine on discharge. (4) Diastolic CHF Comment: - No evidence of acute exacerbation. (5) DVT prophylaxis Comment: - Heparin SQ. (6) DNR (do not resuscitate) Comment: Status and Disposition: Inpatient. Discharge to home.
[2017-04-19] MEDS: Insulin LISPRO* 1 UNITS UNIT SUBCUT SCH ×2 (08:29→12:35)
--- NOTE | 2017-04-19 08:46 | RAD ---
INDICATION: Cardiac pacemaker COMPARISON: April 18, 2017 TECHNIQUE: PA and lateral dual-energy views were obtained. FINDINGS: Bones/Soft Tissues: There are no acute bony findings. There is left-sided cardiac pacemaker Cardiomediastinal: The cardiomediastinal silhouette is normal. Lungs: There are no acute infiltrates. There is no pneumothorax. There is mild chronic interstitial change with hyperinflation. Pleura: There are no pleural effusions. Other: None IMPRESSION: CARDIAC PACEMAKER. NO ACTIVE DISEASE.
[2017-04-19] MEDS ORDERED: Insulin GLARGINE(*) 1 UNITS UNIT SUBCUT SCH (09:22)
[2017-04-19] MEDS: Insulin GLARGINE(*) 1 UNITS UNIT SUBCUT SCH (09:24)
[2017-04-19] MEDS ORDERED: Insulin GLARGINE(*) 1 UNITS UNIT ONE (09:41)
[2017-04-19] MEDS: Aspirin EC TAB* 81 MG TAB.EC PO SCH (09:46)
[2017-04-19 10:27] VITALS: BP 131/73
--- NOTE | 2017-04-19 12:47 | OP ---
CC: Dr. Soto * DATE OF OPERATION: 04/18/17 - ROOM #[id number] DATE OF : [birth year] SURGEON: Marck Richards MD. ANESTHESIA: Local anesthesia with conscious sedation. PRE-OP DIAGNOSES: Sick sinus syndrome and syncope. POST-OP DIAGNOSES: Sick sinus syndrome and syncope. OPERATIVE PROCEDURE: Dual-chamber pacemaker implantation. ESTIMATED BLOOD LOSS: Nil. COMPLICATIONS: None. INDICATIONS: The patient is an 89-year-old gentleman who has been having episodes of severe fatigue and near syncope for quite some time. The patient was admitted to the hospital. He had bradycardia down to 30 beats per minute. Permanent pacemaker was recommended. DESCRIPTION OF PROCEDURE: The patient was brought to the operating room in a fasting state. Informed consent had been obtained prior to the procedure. All labs had been reviewed. The patient was placed supine on the procedure table. His left deltopectoral area was cleaned and draped in the usual fashion. 1% lidocaine was used for local anesthesia. Under ultrasound guidance, the axillary vein was entered via a modified Seldinger technique and a guidewire was placed. The second guidewire was placed in the same technique. A 3.5-cm incision was made and blunt dissection was carried down to the pectoral fascia. A pocket was fashioned for the pacemaker. Over the first guidewire, a 7-Jamaican sheath introducer was placed through which a right ventricular lead was advanced to the RV apex. The right ventricular lead is a Medtronic model 5076, serial number [id number] and a R-wave sensitivity of 10, impedance 967 ohms, threshold 1 volt at 0.5 milliseconds. The ventricular lead was sutured to the pectoral fascia using 0 silk. Over the second guidewire, a 7-Jamaican sheath introducer was placed through which a right atrial lead was advanced to the high right atrium. The right atrial lead was a Medtronic model 5076 serial number [id number], a P-wave sensitivity of 3.3, impedance 597 ohms, threshold 1.5 volts at 0.5 milliseconds. The atrial lead was sutured to the pectoral fascia using 0 silk. The pocket was flushed with antibiotic-infused normal saline. A generator was attached appropriately to the atrial and ventricular lead. The generator is a Medtronic model A2DR01 serial number [id number]. The device was placed into the pocket. The surgical incision was closed in three layers. The patient was returned to the holding area in stable condition. [id number]/[facility] #: [id number] MTDEdith
[2017-04-19] MEDS ORDERED: Pneumococcal *Vac Polyvalent 0.5 ML VIAL IM ONE (13:00)
--- NOTE | 2017-04-20 02:56 | DS ---
DISCHARGE SUMMARY: DATE OF ADMISSION: 04/17/17 DATE OF DISCHARGE: 04/19/17 PRIMARY CARE PHYSICIAN: Dr. Wilhelm. ATTENDING PHYSICIAN: Dr. Shan Sepulveda* (dictation provided by Domonique Augustin NP). PRIMARY DIAGNOSES: 1. Sick sinus syndrome. 2. Pacemaker placement. SECONDARY DIAGNOSES: 1. Diabetes. 2. Mild dementia. 3. History of diastolic congestive heart failure. 4. History of left kidney mass. MEDICATIONS AT THE TIME OF DISCHARGE: 1. Cholecalciferol 400 units p.o. daily. 2. [place] oil 30 mL p.o. once. 3. Lutein 40 mg p.o. daily. 4. Lantus insulin 40 units subcutaneously q.a.m. 5. Glucosamine 2000 mg cap p.o. daily. 6. Ascorbic acid 500 mg p.o. daily. Please also note that patient was prescribed an antibiotic, status post pacemaker per Dr. Richards separately. HOSPITAL COURSE: Mr. Neves is an 89-year-old male with a past medical history of diabetes and a left kidney mass, who presented to the hospital on 04/17/17 with concern for dizziness, lightheadedness, and "almost passing out." Please see the dictated H and P from Waldo Bellamy NP, for complete details. In brief , the patient states that he had the flu in January and beginning of February. He had not fully recovered from that into March when he again had what seemed to be a new viral illness over the couple of weeks prior to admission. With this, he had had some lightheadedness. He reports some chest discomfort prior to arrival. Report from EMS that the patient may have had an episode of ventricular tachycardia on the way to the hospital. In the emergency room, his EKG showed a first-degree block and a heart rate of about 60. He had no leukocytosis. No fever. CRP was less than 1. For concern of possible ventricular tachycardia, his potassium and magnesium were repleted. Mr. Neves was admitted to the intensive care unit on a concern for possible development of a lethal arrhythmia. While there, he did not have any further episodes that were concerning for V-tach, but did have bradycardia. The patient had a transthoracic echocardiogram, which showed ejection fraction of 50% to 55% with no significant wall motion or valvular abnormalities. He was seen in consultation by Dr. Richards from Cardiology. Refer to his note for complete details but he noted that the patient was having some episodes of bradycardia while in the intensive care unit. He did review the strips from the EMS and felt that likely the episode of V-tach was actually artifact rather than true arrhythmia. However, the bradycardia that was noted in the ICU was actually quite severe and showed that he had some non-conductive P waves with heart rate into the 30s. Therefore, he recommended pacemaker placement. Mr. Neves went on for placement of a pacemaker on 04/18/17. He is doing well, status post pacemaker placement. He is ambulating in his room without difficulty. He denies chest pain. He denies lightheadedness or dizziness. Plans are for Mr. Neves to follow up with Dr. Richards in 1 week regarding the pacemaker placement and he will continue to follow up with Dr. Soto for general cardiac care. Mr. Neves is medically stable for discharge to home. DISPOSITION: Home. DIET: Diabetic. ACTIVITY: As tolerated, but patient has been instructed to follow all post- pacemaker activity restrictions for the left arm. FOLLOWUP PLANS: 1. Please follow up with Dr. Wilhelm in the next 1 to 2 weeks. 2. Please follow up with Dr. Richards in the next week. TIME SPENT: Approximately 60 minutes were spent in the discharge of this patient, more than half the time spent with the patient at the bedside reviewing the events leading up to this hospitalization, performing the physical examination, and reviewing my plan of care. DOMONIQUE AUGUSTIN NP [id number]/[facility] #: [id number] LASHA
== END 2017-04-19 13:16 | disposition home health service (06) | DRG 243 ==
LOC: ED 10:31 → ICU 13:16 → MEDTELE 04-18 14:30
PROVIDERS: ADMIT Pediatrics; ATTEND Internal Medicine
PROC: 02H63JZ Insertion of Pacemaker Lead into Right Atrium, Percutaneous Approach (ICD-10-PCS; 2017-04-18)
PROC: 02HK3JZ Insertion of Pacemaker Lead into Right Ventricle, Percutaneous Approach (ICD-10-PCS; 2017-04-18)
PROC: 0JH606Z Insertion of Pacemaker, Dual Chamber into Chest Subcutaneous Tissue and Fascia, Open Approach (ICD-10-PCS; principal; 2017-04-18 11:30)
DX: I49.5 Sick sinus syndrome (principal); I47.2 Ventricular tachycardia; I50.32 Chronic diastolic (congestive) heart failure; E11.9 Type 2 diabetes mellitus without complications; F03.90 Unspecified dementia, unspecified severity, without behavioral disturbance, psychotic disturbance, mood disturbance, and anxiety; I44.0 Atrioventricular block, first degree; R00.1 Bradycardia, unspecified; D64.9 Anemia, unspecified; N28.89 Other specified disorders of kidney and ureter; Z66 Do not resuscitate; Z87.891 Personal history of nicotine dependence; Z83.3 Family history of diabetes mellitus; Z82.49 Family history of ischemic heart disease and other diseases of the circulatory system; Z72.89 Other problems related to lifestyle; Z80.42 Family history of malignant neoplasm of prostate; Z79.4 Long term (current) use of insulin; Z97.4 Presence of external hearing-aid
CPT/HCPCS: 33208; 36415; 70450; 71045; 71046; 80048; 80053; 82550; 83605; 83735; 83880; 84436; 84439; 84443; 84479; 84481; 84484; 85025; 85610; 85730; 86140; 90732; 93005; 93306; 99156; 99157; 99283; A9270-GY; C1785; C1898; J0690; J1644; J2250; J2310; J3010; J3475

== ENCOUNTER 2017-10-04 16:26 | Emergency (ER) | payer MEDICARE ==
--- NOTE | 2017-10-04 16:32 | UC ---
Truncal Trauma HPI - HPI Summary HPI Summary: 89 yo male presents with right side pain. He tells me that 4 days ago he was brushing his teeth in his bathroom at home when he turned around quickly and lost his footing. Fell inbetween the bathtub and the toilet hitting his right side on the tub. Did not hit his head or have LOC. Had pain at the time, but wasn't bad. Took tylenol and felt better. Today he has had increased pain in the area. Has been taking tylenol, which helped at first. Denies cough, SOB, chest pain, abdominal pain, n/v/d/c, dysuria, hematuria. He does not take any blood thinners or ASA. - History Of Current Complaint Stated Complaint: SIDE INJURY Time Seen by Provider: 10/04/17 16:32 Hx Obtained From: Patient Severity Initially: Moderate Severity Currently: Mild Pain Intensity: 4 Pain Scale Used: 0-10 Numeric - Allergies/Home Medications Allergies/Adverse Reactions: Allergies Allergy/AdvReac Type Severity Reaction Status Date / Time No Known Allergies Allergy Verified 07/28/17 10:45 PMH/Surg Hx/FS Hx/Imm Hx Endocrine History: Diabetes Cardiovascular History: Pacemaker/ICD - Surgical History Surgical History: Yes Surgery Procedure, Year, and Place: 1954 appy, pacemaker - Family History Known Family History: Positive: Cardiac Disease, Hypertension, Diabetes - Social History Occupation: Retired Lives: With Family Alcohol Use: None Substance Use Type: None Smoking Status (MU): Former Smoker Type: Cigarettes Have You Smoked in the Last Year: No When Did the Patient Quit Smoking/Using Tobacco: Age 42 - Immunization History Most Recent Influenza Vaccination: Declines Most Recent Pneumonia Vaccination: unknown Review of Systems Constitutional: Negative Skin: Negative Respiratory: Negative Cardiovascular: Negative Gastrointestinal: Negative Genitourinary: Negative Neurovascular: Negative Musculoskeletal: Other: - Right side pain around 12th rib Neurological: Negative Psychological: Negative All Other Systems Reviewed And Are Negative: Yes Physical Exam - Summary Physical Exam Summary: GENERAL: NAD. WDWN. No pain distress. SKIN: No ecchymosis on abdomen or flanks. No rashes, sores, lesions, or open wounds. NECK: Supple. Nontender. CHEST: CTAB. No r/r/w. No accessory muscle use. Breathing comfortably and in no distress. CV: RRR. Pulses intact. Cap refill <2seconds ABDOMEN: Soft. Mild TTP over RUQ and right of the umbilicus. No distention or guarding. No CVA tenderness. Bowel sounds present MSK: TTP overlying 12th rib and just inferior to it. FROM UEs and LEs with symmetric strength. NEURO: Alert. CN II-XII grossly intact. PSYCH: Age appropriate behavior. Triage Information Reviewed: Yes Vital Signs: Vital Signs: Temp Pulse Resp BP Pulse Ox 98.5 F 81 18 108/63 96 10/04/17 16:33 10/04/17 16:33 10/04/17 16:33 10/04/17 16:33 10/04/17 16:33 Laboratory Tests 10/04/17 17:11 POC Urine Color Yellow POC Urine Clarity Clear POC Urine pH 5.5 POC Ur Specif [place] 1.015 POC Urine Protein Negative POC Ur Glucose (UA) Trace A POC Urine Ketones Negative POC Urine Blood Negative POC Urine Nitrite Negative POC Urine Bilirubin Negative POC Urine Urobilinogen 0.2 POC U Leukocyte Esteras Negative Vital Signs Reviewed: Yes Truncal Trauma Course/Dx - Course Course Of Treatment: I had a long discussion with the pt and his regarding the possibility of rib fracture vs superficial soft tissue contusion vs hematoma /organ laceration/organ injury due to trauma and increased pain. To most appropriately evaluate for this type of injury, I recommended they be seen in the ER for likely contrast CT and bloodwork. Pt and his did not wish to do this and wanted to be worked up to the best of our ability here at . His UA was negative. A non-contrast CT of the chest/ab/pel was performed: IMPRESSION: 1. POSSIBLE NONDISPLACED FRACTURE OF THE RIGHT POSTERIOR LATERAL 11TH RIB. NO PLEURAL. EFFUSION OR PNEUMOTHORAX. 2. NO EVIDENCE FOR ACUTE INTRA-ABDOMINAL INJURY. 3. LARGE LEFT RENAL MASS, UNCHANGED. 4. SMALL SOFT TISSUE DENSITY BLADDER MASS, UNCHANGED. 5. PERIUMBILICAL AND BILATERAL INGUINAL HERNIAS CONTAINING FAT, UNCHANGED. Discussed results with patient and he will continue to take tylenol and apply ice to the area. Made aware of signs and symptoms to return or go to ED. Pt was agreeable to plan. - Differential Dx/Diagnosis Provider Diagnoses: Fall. Nondisplaced 11th rib fracture Discharge - Sign-Out/Discharge Documenting (check all that apply): Patient Departure All imaging exams completed and their final reports reviewed: Yes - Discharge Plan Condition: Stable Disposition: HOME Patient Education Materials: Rib Fracture (ED) Referrals: Bimal Wilhelm MD [Primary Care Provider] - Additional Instructions: If you develop a fever, shortness of breath, chest pain, new or worsening symptoms - please call your PCP or go to the ED. 1) If you notice black and blue cota on the abdomen or on your back, or if you develop shortness of breath, vomiting, blood in your stool or urine, or increased pain - please call 911 or go to the ER immediately. 2) Continue to take tylenol for pain and apply ice to the area to decrease pain. - Billing Disposition and Condition Condition: STABLE Disposition: Home
[2017-10-04 16:45] VITALS: BP 108/63
--- NOTE | 2017-10-04 18:15 | RAD ---
INDICATION: Pain right side and flank status post trauma. COMPARISON: Comparison is made with a prior CT of the chest, abdomen and pelvis from July 28, 2017. TECHNIQUE: A CT scan of the chest, abdomen and pelvis was performed without intravenous and without oral contrast. Contiguous axial sections were obtained from the lung apices through the symphysis pubis. Images were reconstructed in the coronal and sagittal planes. FINDINGS: There is a linear infiltrate in the right lower lobe most consistent with atelectasis. No pleural effusion or pneumothorax is seen. There is a slightly prominent precarinal lymph node measuring 1.1 cm in transverse dimension unchanged from the prior study. No other enlarged mediastinal or hilar lymph nodes are seen. The heart is within normal limits in size. No pericardial effusion is present. There are dense calcifications within the coronary arteries. The thoracic aorta is normal in caliber. The liver and spleen are normal in size without significant focal abnormality on this noncontrast study. No calcified gallstones are seen. The pancreas appears atrophic and otherwise unremarkable. The adrenal glands appear to be within normal limits. Again note is made of a large left renal mass arising from the anterior upper and midportion of the kidney measuring 4.8 x 4.2 x 4.8 cm. This is unchanged from the prior study. No hydronephrosis is seen. There is a 1 cm soft tissue density nodule present along the left lateral aspect of the urinary bladder which is unchanged from the prior study most consistent with a bladder mass. The prostate gland is mildly enlarged measuring 4.9 cm in transverse dimension. The abdominal aorta is ectatic with moderate to severe calcific plaque. There is no evidence for retroperitoneal hemorrhage or adenopathy. The stomach, small and large bowel appear nondistended. There is a periumbilical hernia containing fat and bilateral inguinal hernias containing fat which are unchanged. No free intraperitoneal air or fluid is seen. There is mild cortical irregularity present in the right posterior lateral 11th rib suspicious for a nondisplaced fracture. No other fractures are seen. IMPRESSION: 1. POSSIBLE NONDISPLACED FRACTURE OF THE RIGHT POSTERIOR LATERAL 11TH RIB. NO PLEURAL EFFUSION OR PNEUMOTHORAX. 2. NO EVIDENCE FOR ACUTE INTRA-ABDOMINAL INJURY. 3. LARGE LEFT RENAL MASS, UNCHANGED. 4. SMALL SOFT TISSUE DENSITY BLADDER MASS, UNCHANGED. 5. PERIUMBILICAL AND BILATERAL INGUINAL HERNIAS CONTAINING FAT, UNCHANGED.
== END 2017-10-04 18:25 | disposition home or self-care (01) ==
LOC: UCEAST 16:26
DX: S22.31XA Fracture of one rib, right side, initial encounter for closed fracture (principal); S00.532A Contusion of oral cavity, initial encounter; E11.9 Type 2 diabetes mellitus without complications; Z87.891 Personal history of nicotine dependence; W19.XXXA Unspecified fall, initial encounter; W22.09XA Striking against other stationary object, initial encounter; Y93.89 Activity, other specified; Y92.091 Bathroom in other non-institutional residence as the place of occurrence of the external cause
CPT/HCPCS: 71250; 74176; 81003; 99211; G0463